=== PATIENT | female | born 1990 | race Caucasian/White ===

== ENCOUNTER 2016-04-28 11:55 | Outpatient (CLI) | payer MEDICAID | END 2016-04-28 12:39 | disposition home or self-care (01) | LOC: LC 11:55 | PROVIDERS: ATTEND Student in an Organized Health Care Education/Training Program | PROC: 4A1HXCZ Monitoring of Products of Conception, Cardiac Rate, External Approach (ICD-10-PCS; principal; 2016-04-28) | DX: Z34.93 Encounter for supervision of normal pregnancy, unspecified, third trimester (principal); Z36 Encounter for antenatal screening of mother; Z3A.34 34 weeks gestation of pregnancy | CPT/HCPCS: 59025 ==

== ENCOUNTER 2016-05-19 22:40 | Outpatient (CLI) | payer MEDICAID ==
--- NOTE | 2016-05-19 22:48 | Non Stress Test Report ---
Non Stress Test Datetime Report Generated by CPN: 05/19/2016 22:48 DEMOGRAPHIC EGA NST: 34.0 INDICATION Indication for Study: Ordered by Provider MONITORING Monitor Explained: Monitor Explained; Test Explained; Patient Verbalized Understanding Time on Monitor: 04/28/2016 12:08 Time off Monitor: 04/28/2016 12:28 NST Duration: 20 NST INTERVENTIONS NST Interventions: None; PO Hydration Physician Notified NST: KEvi Hernandez, CNM BABY A: [id number] BABY A Movement : Present Contraction Frequency : none FHR Baseline : 135 Accelerations : 15X15 Decelerations : None Variability : Moderate 6-25bpm NST Review: Meets Criteria for Reactive NST NST Review and Verified By : Anu Rao RN NST Results: Reactive NST REPORT Report Trigger: Send Report
[2016-05-19 23:12] LABS: APPEARANCE,URINE SLIGHTLY-CLOUDY; BILIRUBIN,URINE NEGATIVE (NEGATIVE); GLUCOSE, URINE 50 mg/dL (NEGATIVE); KETONES,URINE NEGATIVE (NEGATIVE); LEUKOCYTE ESTERASE,URINE NEGATIVE (NEGATIVE); NITRITE,URINE NEGATIVE (NEGATIVE); PROTEIN,URINE NEGATIVE (NEGATIVE); URINE SPECIFIC GRAVITY 1.012; UROBILINOGEN,URINE NEGATIVE mg/dL (<2.0)
[2016-05-19 23:30] LABS: URINE BARBITURATES SCREEN NEGATIVE; URINE METHADONE SCREEN NEGATIVE; URINE OPIATES LOW NEGATIVE; URINE PHENCYCLIDINE SCREEN NEGATIVE
--- NOTE | 2016-05-20 00:16 | Non Stress Test Report ---
Non Stress Test Datetime Report Generated by CPN: 05/20/2016 00:16 DEMOGRAPHIC Test Number: 3 EGA NST: 37.0 INDICATION Indication for Study: Ordered by Provider MONITORING Monitor Explained: Monitor Explained; Test Explained; Patient Verbalized Understanding Time on Monitor: 05/19/2016 23:01 Time off Monitor: 05/19/2016 23:57 NST Duration: 56 NST INTERVENTIONS Physician Notified NST: Dr Chemo BABY A Movement : Present Contraction Frequency : irregular FHR Baseline : 150 Accelerations : 15X15 Decelerations : None Variability : Moderate 6-25bpm NST Review: Meets Criteria for Reactive NST NST Review and Verified By : Dilip Gordon RN NST Results: Reactive NST REPORT Report Trigger: Send Report
--- NOTE | 2016-05-20 04:46 | L&D Current Admission ---
Current Admit Datetime Report Generated by CPN: 05/20/2016 04:45 ADMISSION INFORMATION Chief Complaint: Contractions (05/19/2016 23:11:Sheila Pittman, RN)
--- NOTE | 2016-05-20 04:46 | Antepartum Discharge Summary ---
Antepartum DC Datetime Report Generated by CPN: 05/20/2016 04:45 DIET/ACTIVITY/RESTRICTIONS Diet: Regular (05/20/2016 00:15:Sheila Pittman, RN) Activity: Normal Activity (05/20/2016 00:15:Sheila Pittman, RN) TEACHING/INSTRUCTIONS/REFERRALS Instructions Given To: Patient and spouse (05/20/2016 00:15:Sheila Pittman, RN) Instructions Understood: Patient Verbalized Understanding; Support Person Verbalized Understanding (05/20/2016 00:15:Sheila Pittman RN) Referrals: None (05/20/2016 00:15:Sheila Pittman RN) Educational Materials- Other: Kick Counts and Term Labor (05/20/2016 00:15:Sheila Pittman RN) DISCHARGE INFORMATION Discharged AMA: No (05/20/2016 00:15:Sheila Pittman RN) Discharge Date/Time: 05/20/2016 00:05 (05/20/2016 00:15:Sheila Pittman RN) Discharged To: Home (05/20/2016 00:15:Sheila Pittman RN) Discharge Provider Name: Dr Mclain (05/20/2016 00:15:Sheila Pittman RN) Accompanied By: Spouse (05/20/2016 00:15:Sheila Pittman RN) Discharge Method: Ambulatory (05/20/2016 00:15:Sheila Pittman RN) Condition: Stable (05/20/2016 00:15:Sheila Pittman RN) FOLLOW UP INFORMATION Follow Up With: [facility] (05/20/2016 00:15:Sheila Pittman RN) Follow Up On: As Scheduled (05/20/2016 00:15:Sheila Pittman RN) Follow Up Phone Number: [facility] - (05/20/2016 00:15:Sheila Pittman RN) Comments: Patient without questions at this time. Advised patient to return for contractions every 8 minutes, decreased movement, leaking of fluid, and bleeding like a period. (05/20/2016 00:15:Sheila Pittman RN)
--- NOTE | 2016-05-20 04:46 | L&D Flow Sheet ---
LD Flowsheet Datetime Report Generated by CPN: 05/20/2016 04:45 Datetime: 05/19/2016 23:57 Vital Signs Stage of : Antepartum (Sheila Pittman, RN) Respirations: 18 (Sheila Pittman, RN) Uterine Activity Monitor Mode: External; Palpation (Sheila Pittman, RN) Frequency (min): 3-5.5 (Sheila Pittman, RN) Quality: Mild (Sheila Pittman, RN) Duration (sec): 80-120 (Sheila Pittman, RN) Pattern: Normal: <= 5 Contractions in 10 Minutes (Sheila Pittman, RN) Resting Tone (Palpate): Relaxed (Sheila Pittman, RN) Assessment A Monitor Mode: External US (Sheila Pittman, RN) FHR Baseline Rate : 140 (Sheila Pittman, RN) Variability: Moderate 6-25 bpm (Sheila Pittman, RN) Accelerations: 15X15 (Sheila Pittman, RN) Decelerations: None (Sheila Pittman, RN) Pain Pain Scale: 0 (Sheila Pittman, RN) Pain Presence: None/Denies (Sheila Pittman, RN) Pain Type: N/A (Sheila Pittman, RN) Pain Coping: Talking Through Contractions (Sheila Pittman, RN) Communication Communication: RN at Bedside; RN Reviewed Strip (Sheila Pittman, RN) LaborFlag: Antepartum (QS system process) Datetime: 05/19/2016 23:56 NBP Sys/Rosalia/Mean (mmHg): 95 (QS system process) : 59 (QS system process) : 71 (QS system process) Pulse: 73 (QS system process) Vaginal Exam Dilatation (cm): 0.0 (Sheila Pittman, RN) Effacement (%): 50 (Sheila Pittman, RN) Station: -3 (Sheila Pittman, RN) Exam by: Mlee Pittman RN (Sheila Pittman, RN) Vaginal Bleeding: None (Sheila Pittman, RN) Cervix, Consistency: Moderate (Sheila Pittman, RN) Cervix, Position: Posterior (Sheila Pittman, RN) LaborFlag: Antepartum (QS system process) Datetime: 05/19/2016 23:53 Communication Communication: Provider Orders Received (Sheila Pittman RN) Communication Comments: Report given to Dr Mclain re: patient pain, contraction pattern, EGA, and FHR status. Orders received to Check Cervix and D/C home if closed. (Sheila Pittman, RN) Datetime: 05/19/2016 23:30 Vital Signs Stage of : Antepartum (Sheila Pittman, RN) Uterine Activity Monitor Mode: External; Palpation (Sheila Pittman, RN) Frequency (min): x1 (Sheila Pittman, RN) Duration (sec): 110 (Sheila Pittman, RN) Resting Tone (Palpate): Relaxed (Sheila Pittman, RN) Assessment A Monitor Mode: External US (Sheila Pittman, RN) FHR Baseline Rate : 150 (Sheila Pittman, RN) Variability: Moderate 6-25 bpm (Sheila Pittman, RN) Accelerations: 15X15 (Sheila Pittman, RN) Decelerations: None (Sheila Pittman, RN) Communication Communication: RN at Bedside; RN Reviewed Strip (Sheila Pittman, RN) Datetime: 05/19/2016 23:12 Patient Care Patient Position/Activity: Right Tilt; High Fowlers (Sheila Pittman, RN) Datetime: 05/19/2016 23:11 Frequency (min): every 10-15 minutes (Sheila Pittman, RN) Pain Pain Scale: 0 (Sheila Pittman, RN) Pain Presence: None/Denies (Sheila Pittman, RN) Pain Type: N/A (Sheila Pittman, RN) Vaginal Bleeding: None (Sheila Pittman, RN) Maternal Assessment Level of Consciousness: Fully Conscious (Sheila Pittman, RN) DTR's/Clonus: DTRs 1+; No Clonus (Sheila Pittman, RN) Headache: Denies (Sheila Pittman, RN) Breath Sounds, Left: Clear and Equal (Sheila Pittman, RN) Breath Sounds, Right: Clear and Equal (Sheila Pittman, RN) Nausea/Vomiting: Denies (Sheila Pittman, RN) RUQ Epigastric Pain: Denies (Sheila Pittman, RN) Datetime: 05/19/2016 23:03 NBP Sys/Rosalia/Mean (mmHg): 110 (QS system process) : 71 (QS system process) : 85 (QS system process) Pulse: 71 (QS system process)
--- NOTE | 2016-05-20 04:46 | L&D Admission Assessment ---
LD ADM ASMT Datetime Report Generated by CPN: 05/20/2016 04:45 PATIENT ASSESSMENT Assessment Type: Triage (05/19/2016 23:11:Sheila Pittman, RN) WEIGHT Weight (lb): 183 (05/19/2016 22:57:QS system process) Weight (kg): 83.2 (05/19/2016 22:57:QS system process) Total Wt Gain (lb): 38 (05/19/2016 22:57:QS system process) Wt Gain (kg): 17.1 (05/19/2016 22:57:QS system process) BMI: 20.1 (05/19/2016 22:57:QS system process) PAIN Pain Scale: 0 (05/19/2016 23:57:Sheila Pittman, RN) Pain Scale: 0 (05/19/2016 23:11:Sheila Pittman, RN) Pain Presence: None/Denies (05/19/2016 23:57:Sheila Pittman, RN) Pain Presence: None/Denies (05/19/2016 23:11:Sheila Pittman, RN) Pain Type: N/A (05/19/2016 23:57:Sheila Pittman, RN) Pain Type: N/A (05/19/2016 23:11:Sheila Pittman, RN) CONTRACTIONS Frequency (min): 3-5.5 (05/19/2016 23:57:Sheila Pittman, RN) Frequency (min): x1 (05/19/2016 23:30:Sheila Pittman, RN) Frequency (min): every 10-15 minutes (05/19/2016 23:11:Sheila Pittman, RN) Duration (sec): 80-120 (05/19/2016 23:57:Sheila Pittman, RN) Duration (sec): 110 (05/19/2016 23:30:Sheila Pittman, RN) Quality: Mild (05/19/2016 23:57:Sheila Pittman, RN) Pattern: Normal: <= 5 Contractions in 10 Minutes (05/19/2016 23:57:Sheila Pittman, RN) Resting Tone [place]: Relaxed (05/19/2016 23:57:Sheila Pittman, RN) Resting Tone [place]: Relaxed (05/19/2016 23:30:Sheila Pittman, RN) VAGINAL EXAM Dilatation (cm): 0.0 (05/19/2016 23:56:Sheila Pittman, RN) Effacement (%): 50 (05/19/2016 23:56:Sheila Pittman, RN) Station: -3 (05/19/2016 23:56:Sheila Pittman, RN) NEURO Level of Consciousness: Fully Conscious (05/19/2016 23:11:Sheila Pittman RN) DTR's/Clonus: DTRs 1+; No Clonus (05/19/2016 23:11:Sheila Pittman RN) Headache: Denies (05/19/2016 23:11:Sheila Pittman RN) Dizziness: No (05/19/2016 23:11:Sheila Pittman RN) Blurred Vision: No (05/19/2016 23:11:Sheila Pittman RN) Extremity Numbness/Tingling : None (05/19/2016 23:11:Sheila Pittman RN) Extremity Movement: Full Range of Motion (05/19/2016 23:11:Sheila Pittman RN) CARDIOVASCULAR Heart Rhythm: Regular (05/19/2016 23:11:Sheila Pittman RN) Nailbeds: [place] (05/19/2016 23:11:Sheila Pittman RN) Capillary Refill: Less than 3 Seconds (05/19/2016 23:11:Sheila Pittman RN) Lower Extremities Edema: None (05/19/2016 23:11:Sheila Pittman RN) Lower Extremities Edema Degree: None (05/19/2016 23:11:Sheila Pittman RN) Upper Extremities Edema: None (05/19/2016 23:11:Sheila Pittman RN) Upper Extremities Edema Degree: None (05/19/2016 23:11:Sheila Pittman RN) Facial Edema: None (05/19/2016 23:11:Sheila Pittman RN) Alber's Sign Left Leg: Negative (05/19/2016 23:11:Sheila Pittman RN) Alber's Sign Right Leg: Negative (05/19/2016 23:11:Sheila Pittman RN) DVT RISK ASSESSMENT DVT Risk Age: Age less than 41 years (05/19/2016 23:11:Sheila Pittman RN) DVT Risk BMI: BMI<31 (05/19/2016 23:11:Sheila Pittman RN) DVT Risk Surgery: History of Prior Major Surgery (05/19/2016 23:11:Sheila Pittman RN) DVT Risk Other: None Applicable (05/19/2016 23:11:Sheila Pittman RN) DVT Risk Total: 1 (05/19/2016 23:11:QS system process) DVT Risk Text: Low Risk (<10%) No specific measures, early ambulation (05/19/2016 23:11:QS system process) RESPIRATORY Respiratory Effort: Unlabored; Regular Rhythm; Equal Expansion (05/19/2016 23:11:Sheila Pittman, RN) Breath Sounds, Left: Clear and Equal (05/19/2016 23:11:Sheila Pittman, RN) Breath Sounds, Right: Clear and Equal (05/19/2016 23:11:Sheila Pittman, RN) Cough Productivity: None (05/19/2016 23:11:Sheila Pittman, RN) GASTROINTESTINAL Nausea/Vomiting: Denies (05/19/2016 23:11:Sheila Pittman, RN) Bowel Sounds: Normoactive; All Quadrants (05/19/2016 23:11:Sheila Pittman, RN) RUQ Epigastric Pain: Denies (05/19/2016 23:11:Sheila Pittman, RN) Bowel Patterns: Soft, Formed Stool (05/19/2016 23:11:Sheila Pittman, RN) Hemorrhoids: Present (05/19/2016 23:11:Sheila Pittman, RN) Diet Type: Regular diet (05/19/2016 23:11:Sheila Pittman, RN) Last Meal: 05/19/2016 19:30 (05/19/2016 23:11:Sheila Pittman, RN) GENITOURINARY Bladder: Nondistended (05/19/2016 23:11:Sheila Pittman, RN) Frequency of Urination: No (05/19/2016 23:11:Sheila Pittman, RN) Urination Burning: No (05/19/2016 23:11:Sheila Pittman, RN) CVA Tenderness: No (05/19/2016 23:11:Sheila Pittman, RN) INTEGUMENTARY Skin Color: Normal for Race (05/19/2016 23:11:Sheila Pittman, RN) Skin Temperature: Warm (05/19/2016 23:11:Sheila Pittman, RN) Skin Moisture: Dry (05/19/2016 23:11:Sheila Pittman, RN) Surgical Scars: C/S, Spinal fusion surgery (05/19/2016 23:11:Sheila Pittman, RN) Body Piercings/Tattoos: piercings- none Tattoos- x3 (05/19/2016 23:11:Sheila Pittman, RN) AKIL SKIN ASSESSMENT Akil Scale Sensory Perception: No Impairment- Responds to verbal commands. Has no sensory deficit which would limit ability to feel or voice pain or discomfort (05/19/2016 23:11:Sheila Pittman RN) Akil Scale Moisture: Rarely Moist- Skin is usually dry. Linen only requires changing at routine intervals (05/19/2016 23:11:Sheila Pittman RN) Akil Scale Activity: Walks Frequently- Walks outside the room at least twice a day and inside room at least every 2 hours during the day. (05/19/2016 23:11:Sheila Pittman RN) Akil Scale Mobility: No Limitations- Makes major and frequent changes in position without assistance (05/19/2016 23:11:Sheila Pittman RN) Akil Scale Nutrition: Excellent- Eats most of every meal. Never refuses a meal. Usually eats a total of 4 or more servings of meat and dairy products. Occasionally eats between meals. Does not require supplementation (05/19/2016 23:11:Sheila Pittman RN) Akil Scale Friction and Shear: No Apparent Problem- Moves in bed and in chair independently and has sufficient muscle strength to lift up completely during move. Maintains good position in bed or chair at all times (05/19/2016 23:11:Sheila Pittman RN) Akil Scale Total: 23 (05/19/2016 23:11:QS system process) Akil Scale Risk: No Risk of Pressure Ulcer Noted at this Time (05/19/2016 23:11:QS system process) SUPPORT Family Support: Significant Other supportive, at bedside frequently (05/19/2016 23:11:Sheila Pittman RN) Emotional State: Calm/Relaxed (05/19/2016 23:11:Sheila Pittman RN) SAFETY Call [place] Within Reach: Yes (05/19/2016 23:11:Sheila Pittman RN) Side Rails Up: Yes (05/19/2016 23:11:Sheila Pittman RN) Bed Wheels Locked: Yes (05/19/2016 23:11:Sheila Pittman RN) Arm Bands Present: Yes (05/19/2016 23:11:Sheila Pittman RN) FALL SCREEN Fall Risk History of Falling: (0) No (05/19/2016 23:11:Sheila Pittman RN) Fall Risk Secondary Diagnosis: (0) No (05/19/2016 23:11:Sheila Pittman RN) Fall Risk Ambulatory Aid: (0) None/Bedrest/Wheelchair/Nurse Assist (05/19/2016 23:11:Sheila Pittman RN) Fall Risk IV Therapy: (0) No (05/19/2016 23:11:Sheila Pittman RN) Fall Risk Gait: (0) Normal/Bedrest/Immobile (05/19/2016 23:11:Sheila Pittman RN) Fall Risk Mental Status: (0) Oriented to Own Ability (05/19/2016 23:11:Sheila Pittman RN) Fall Risk Score: 0 (05/19/2016 23:11:QS system process) Fall Risk Score Definition: No Risk: No action required (05/19/2016 23:11:QS system process) RECENT TRAVEL/INFECTIOUS DISEASE Recent Exp Communicable Disease: No (05/19/2016 23:11:Sheila Pittman RN) Cough or Fever: No (05/19/2016 23:11:Sheila Pittman RN) Foreign Travel Past 10 Days: No (05/19/2016 23:11:Sheila Pittman RN) Open Wounds or Sores: No (05/19/2016 23:11:Sheila Pittman RN) Prior Antibiotic Resistance Tx: No (05/19/2016 23:11:Sheila Pittman RN) Cultures Obtained: Not Applicable (05/19/2016 23:11:Sheila Pittman RN) Isolation Initiated: No (05/19/2016 23:11:Sheila Pittman RN) Pt/Family Education: Handwashing Hygiene (05/19/2016 23:11:Sheila Pittman RN) BABY A FHR Baseline Rate (bpm) Baby A: 140 (05/19/2016 23:57:Sheila Pittman RN) FHR Baseline Rate (bpm) Baby A: 150 (05/19/2016 23:30:Sheila Pittman RN) Variability Baby A: Moderate 6-25 bpm (05/19/2016 23:57:Sheila Pittman RN) Variability Baby A: Moderate 6-25 bpm (05/19/2016 23:30:Sheila Pittman RN) Accelerations Baby A: 15X15 (05/19/2016 23:57:Sheila Pittamn RN) Accelerations Baby A: 15X15 (05/19/2016 23:30:Sheila Pittman RN) Decelerations Baby A: None (05/19/2016 23:57:Sheila Pittman RN) Decelerations Baby A: None (05/19/2016 23:30:Sheila Pittman RN)
--- NOTE | 2016-05-20 04:46 | L&D General Admission ---
General Admit Datetime Report Generated by CPN: 05/20/2016 04:45 INFORMATION Patient Age: 25 (03/16/2016 10:51:QS system process) EDC: 06/09/2016 00:00 (04/28/2016 12:29:Vero Mclain RN) LMP: 09/03/2015 00:00 (04/28/2016 12:29:Lucien Rao RN) : 2 (04/28/2016 12:29:Lucien Rao RN) Para: 1 (04/28/2016 12:29:Lucien Rao RN) Term: 1 (04/28/2016 12:29:Lorene Atkinson RN) : 0 (04/28/2016 12:29:Lorene Atkinson RN) Spontaneous Abortions: 0 (04/28/2016 12:29:Lorene Atkinson RN) Induced Abortions: 0 (04/28/2016 12:29:Lorene Atkinson RN) Livin (04/28/2016 12:29:Lorene Atkinson RN) Cesareans: 1 (04/28/2016 12:29:Lorene Atkinson RN) VBACs: 0 (04/28/2016 12:29:Lorene Atkinson RN) Ectopic: 0 (04/28/2016 12:29:Lorene Atkinson RN) Multiple Births: 0 (04/28/2016 12:29:Sheila Pittman RN) Baby, Number in Womb: 1 (04/28/2016 12:29:Lorene Atkinson RN) CARE Primary Cat [place]er: [facility] (04/28/2016 12:29:Lucien Rao RN) Cat Hooker Other: [facility] (04/28/2016 12:29:Lucien Rao RN) Month of 1st Visit: October 2015 (04/28/2016 12:29:Lucien Rao RN) Adequate Care: Yes (04/28/2016 12:29:Lucien Rao RN) Prepregnancy Weight (lb): 145 (04/28/2016 12:29:Lucien Rao RN) Prepregnancy Weight (kg): 65.9 (04/28/2016 12:29:QS system process) Height (in): 61 (05/19/2016 22:57:QS system process) Height (in): 80 (04/28/2016 12:37:QS system process) ALLERGIES Medication Allergy: No (04/28/2016 12:29:Lucien Rao RN) Medication Allergies: No Known Allergies (05/19/2016) (05/19/2016 22:55:QS system process) Medication Allergies: No Known Allergies (04/28/2016) (04/28/2016 12:37:QS system process) Latex Allergy: No Latex Allergies (04/28/2016 12:29:Lucien Rao RN) Food Allergies: none (04/28/2016 12:29:Sheila Pittman RN) Environmental Allergies: none (04/28/2016 12:29:Sheila Pittman RN) COMMUNICATION Primary Language: Spanish (04/28/2016 12:29:Lucien Rao RN) Medical Tx Preferred Language: Spanish (04/28/2016 12:29:Sheila Pittman RN) Communication Barrier(s): None (04/28/2016 12:29:Lucien Rao RN) DEMOGRAPHICS Address: [address] [place] [id number] (03/16/2016 10:51:QS system process) Zipcode: [address] (03/16/2016 10:51:QS system process) Home (03/16/2016 10:51:QS system process) SSN: [id number] (03/16/2016 10:51:QS system process) Next of Kin Name: ROBIN NASCIMENTO (03/16/2016 10:51:QS system process) Next of Kin (03/16/2016 10:51:QS system process) Next of Kin Relationship: SPO (03/16/2016 10:51:QS system process) Date of : 1990 (03/16/2016 10:51:QS system process) Marital Status: (03/16/2016 10:51:QS system process) Sex: Female (03/16/2016 10:51:QS system process) Race: (03/16/2016 10:51:QS system process) Ethnicity: Non- or (03/16/2016 10:51:QS system process) Amish: [employer]aritan (03/16/2016 10:51:QS system process) DRUG AND ALCOHOL USE Alcohol: No (04/28/2016 12:29:Sheila Pittman RN) Cigarettes: Current Some Day Smoker. [id number] (04/28/2016 12:29:Sheila Pittman, RN) Marijuana: No (04/28/2016 12:29:Sheila Pittman, RN) Cocaine: No (04/28/2016 12:29:Sheila Pittman, RN) Other Illicit Drugs: No (04/28/2016 12:29:Sheila Pittman, RN) VACCINE HISTORY Influenza Vaccine: No (04/28/2016 12:29:Sheila Pittman RN) Pneumococcal Vaccine: No (04/28/2016 12:29:Sheila Pittman RN) Tetanus Vaccine: Yes (04/28/2016 12:29:Sheila Pittman RN) Tdap Vaccine: Yes (04/28/2016 12:29:Sheila Pittman RN) Hepatitis B Vaccine: No (04/28/2016 12:29:Sheila Pittman, RN) Tension Worker: [facility] (04/28/2016 12:29:Sheila Pittman RN) Feeding Preference: Breast (04/28/2016 12:29:Sheila Pittman RN) Benefit of Breast Feed Discussed: Yes (04/28/2016 12:29:Sheila Pittman RN) Circumcision: N/A (04/28/2016 12:29:Sheila Pittman RN) Classes Attended: No (04/28/2016 12:29:Sheila Pittman RN) Tubal Ligation: Yes (04/28/2016 12:29:Sheila Pittman RN) Tubal Authorization Signed: Yes (04/28/2016 12:29:Sheila Pittman RN) Consent: N/A (04/28/2016 12:29:Sheila Pittman RN) Consent Signed: No (04/28/2016 12:29:Sheila Pittman RN) Pain Management Plans: Spinal (04/28/2016 12:29:Sheila Pittman RN) Plans for Labor and Delivery: None (04/28/2016 12:29:Sheila Pittman RN) Support Person: Robin (04/28/2016 12:29:Sheila Pittman RN) Support Person Relationship: (04/28/2016 12:29:Sheila Pittman RN) Cultural/Spritual Practice: No (04/28/2016 12:29:Sheila Pittman RN) Spir/Cult Dietary Needs: No (04/28/2016 12:29:Sheila Pittman RN) LIVING SITUATION/DISCHARGE PLAN Living Arrangements: House (04/28/2016 12:29:Sheila Pittman RN) Adequate Access to:: Electric; Heat; Refrigeration; Plumbing/Running water; Phone; Transportation (04/28/2016 12:29:Sheila Pittman RN) WIC Program: Yes (04/28/2016 12:29:Sheila Pittman RN) Discharge Solar Panel Installer Person: Robin (04/28/2016 12:29:Sheila Pittman RN) Person to Help after Discharge: Robin (04/28/2016 12:29:Sheila Pittman RN) Currently Using Commun Resources: Yes (04/28/2016 12:29:Sheila Pittman RN) Specify Current Resource Used: Medicaid (04/28/2016 12:29:Sheila Pittman RN) Outside Agency/Software Support Representative: No (04/28/2016 12:29:Sheila Pittman RN) Car Seat for Discharge: Yes (04/28/2016 12:29:Sheila Pittman RN) Adoption Requested: No (04/28/2016 12:29:Sheila Pittman RN) Pt Contact w/infant Post : N/A (04/28/2016 12:29:Sheila Pittman RN) LABS Blood Type: O Positive (04/28/2016 12:29:Sheila Pittman RN) Antibody Screen: negative (04/28/2016 12:29:Sheila Pittman RN) Group Beta Strep: negative (04/28/2016 12:29:Sheila Pittman RN) Gonorrhea: Negative (04/28/2016 12:29:Sheila Pittman RN) Chlamydia: Negative (04/28/2016 12:29:Sheila Pittman RN) RPR/VDRL: Nonreactive (04/28/2016 12:29:Sheila Pittman RN) HIV Exposure Test: Negative (04/28/2016 12:29:Sheila Pittman RN) Rubella: Immune (04/28/2016 12:29:Sheila Pittman RN) OB/PREVIOUS HISTORY LMP: 09/03/2015 00:00 (04/28/2016 12:29:Lucien Rao RN) Previous Procedures: Ultrasound; NST (04/28/2016 12:29:Sheila Pittman RN) Current Procedures: Ultrasound; NST (04/28/2016 12:29:Sheila Pittman RN) History of Previous : Yes (04/28/2016 12:29:Sheila Pittman RN) History of Gestational Diabetes: No (04/28/2016 12:29:Sheila Pittman RN) History of PIH: No (04/28/2016 12:29:Sheila Pittman RN) History of Incompetent Cervix: No (04/28/2016 12:29:Sheila Pittman RN) History of Placenta Previa/Abrup: No (04/28/2016 12:29:Sheila Pittman RN) History of Macrosomia: No (04/28/2016 12:29:Sheila Pittman RN) History of IUGR: No (04/28/2016 12:29:Sheila Pittman RN) History of Hemorrhage: No (04/28/2016 12:29:Sheila Pittman RN) History of Loss/Stillborn: No (04/28/2016 12:29:Sheila Pittman RN) History of : No (04/28/2016 12:29:Sheila Pittman RN) History of D (Rh) Sensitization: No (04/28/2016 12:29:Sheila Pittman RN) History Recurrent Loss/Stillborn: No (04/28/2016 12:29:Sheila Pittman RN) History Depression/PP Depression: No (04/28/2016 12:29:Sheila Pittman RN) History of Uterine Anomaly/MAHOGANY: No (04/28/2016 12:29:Sheila Pittman RN) History of Infertility: No (04/28/2016 12:29:Sheila Pittman RN) History of ART Treatment: No (04/28/2016 12:29:Sheila Pittman RN) History of MAHOGANY: No (04/28/2016 12:29:Sheila Pittman RN) Comments Obstetrical History: G1 06/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, 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; Aicardi Syndrome Shunt, Epilepsy G2 Current (04/28/2016 12:29:Lorene Atkinson RN) MEDICAL HISTORY Med Hx Diabetes: Yes (04/28/2016 12:29:Lucien Rao RN) Diabetes Type: Gestational Diabetes (04/28/2016 12:29:Lucien Rao RN) Med Hx Hypertension: No (04/28/2016 12:29:Sheila Pittman RN) Med Hx Heart Disease: No (04/28/2016 12:29:Sheila Pittman RN) Med Hx Autoimmune Disorder: No (04/28/2016 12:29:Sheila Pittman RN) Med Hx Kidney Disease/UTI: No (04/28/2016 12:29:Sheila Pittman RN) Med Hx Neurologic/Epilepsy: No (04/28/2016 12:29:Sheila Pittman RN) Med Hx Psychiatric Disorders: No (04/28/2016 12:29:Sheila Pittman RN) Med Hx Hepatitis/Liver Disease: No (04/28/2016 12:29:Sheila Pittman RN) Med Hx Varicosities/Phlebitis: No (04/28/2016 12:29:Sheila Pittman RN) Med Hx Thyroid Dysfunction: No (04/28/2016 12:29:Sheila Pittman RN) Med Hx Trauma/Violence: No (04/28/2016 12:29:Sheila Pittman RN) Med Hx Blood Transfusion: No (04/28/2016 12:29:Sheila Pittman RN) Med Hx Pulmonary (Asthma,TB): No (04/28/2016 12:29:Sheila Pittman RN) Med Hx Breast: No (04/28/2016 12:29:Sheila Pittman RN) Med Hx STEEL ESTIMATOR Surgery: No (04/28/2016 12:29:Sheila Pittman RN) Med Hx Hospitalization/Surgery: Yes (04/28/2016 12:29:Lucien Rao RN) Med Hx Anesthetic Complications: No (04/28/2016 12:29:Sheila Pittman RN) Med Hx Abnormal Pap Smear: No (04/28/2016 12:29:Sheila Pittman RN) Other Medical Diseases: No (04/28/2016 12:29:Sheila Pittman RN) Med Hx Significant Family Hx: No (04/28/2016 12:29:Sheila Pittman RN) Details of Med/Surg Hx: Back Surgery; Pleurodynia; Congenital Scoliosis d/t congenital bony malformation, Previous C/S, GDM (04/28/2016 12:29:Lucien Rao RN) INFECTIOUS HISTORY Inf Hx Gonorrhea: No (04/28/2016 12:29:Sheila Pittman RN) Inf Hx Chlamydia: No (04/28/2016 12:29:Sheila Pittman RN) Inf Hx Syphilis: No (04/28/2016 12:29:Sheila Pittman RN) Inf Hx HIV/AIDS: No (04/28/2016 12:29:Sheila Pittman RN) Inf Hx Human Papilloma Virus: No (04/28/2016 12:29:Sheila Pittman RN) Inf Hx Pt/Partner Genital Herpes: No (04/28/2016 12:29:Sheila Pittman RN) Inf Hx Tuberculosis/Exposure: No (04/28/2016 12:29:Sheila Pittman RN) Inf Hx Hepatitis B,C: No (04/28/2016 12:29:Sheila Pittmna RN) Inf Hx Rash or Viral Illness: No (04/28/2016 12:29:Sheila Pittman RN) GENETIC HISTORY Gen Hx Age >=35 at GIRISH: No (04/28/2016 12:29:Sheila Pittman RN) Gen Hx Thalassemia: No (04/28/2016 12:29:Sheila Pittman RN) Gen Hx Congenital Heart Defect: No (04/28/2016 12:29:Sheila Pittman RN) Gen Hx Neural Tube Defect: No (04/28/2016 12:29:Sheila Pittman RN) Gen Hx Down's Syndrome: No (04/28/2016 12:29:Sheila Pittman RN) Gen Hx Prasanna-Sachs: No (04/28/2016 12:29:Sheila Pittman RN) Gen Hx Nazario: No (04/28/2016 12:29:Sheila Pittman RN) Gen Hx Familial Dysautonomia: No (04/28/2016 12:29:Sheila Pittman RN) Gen Hx Sickle Cell Disease/Trait: No (04/28/2016 12:29:Sheila Pittman RN) Gen Hx Hemophilia/Blood Disorder: No (04/28/2016 12:29:Sheila Pittman RN) Gen Hx Muscular Dystrophy: No (04/28/2016 12:29:Sheila Pittman RN) Gen Hx Cystic Fibrosis: No (04/28/2016 12:29:Sheila Pittman RN) Gen Hx Huntingtons Chorea: No (04/28/2016 12:29:Sheila Pittman RN) Gen Hx Mental Retardation/Autism: No (04/28/2016 12:29:Sheila Pittman RN) Gen Hx Tested for Fragile X: No (04/28/2016 12:29:Sheila Pittman RN) Gen Hx Other Inher/Chromosomal: No (04/28/2016 12:29:Sheila Pittman RN) Gen Hx Maternal Metabolic DO: No (04/28/2016 12:29:Sheila Pittman RN) Gen Hx Pt Father or FOB Defect: No (04/28/2016 12:29:Sheila Pittman RN) Gen Hx Other Genetic History: No (04/28/2016 12:29:Sheila Pittman RN) Gen Hx Drugs/Meds since LMP: Yes (04/28/2016 12:29:Sheila Pittman RN) Gen Hx Medications: tylenol (04/28/2016 12:29:Sheila Pittman RN)
--- NOTE | 2016-05-20 04:46 | L&D Discharge Summary ---
OB Discharge Summary Datetime Report Generated by CPN: 05/20/2016 04:45 DISCHARGE DIAGNOSIS Diagnosis/Symptoms: False Labor Diagnoses/Symptoms Other: Reactive NST Gestation: 37.0 Number of Babies in Womb: 1 Parity: 1 DIET/ACTIVITY/RESTRICTIONS Diet: Regular Activity: Normal Activity TEACHING/INSTRUCTIONS/REFERRALS Instructions Given To: Patient and spouse Instructions Understood: Patient Verbalized Understanding; Support Person Verbalized Understanding Referrals: None Educational Materials- Other: Kick Counts and Term Labor DISCHARGE INFORMATION Discharged AMA: No Discharge Date/Time: 05/20/2016 00:05 Discharged To: Home Discharge Provider Name: Dr Mclain Accompanied By: Spouse Discharge Method: Ambulatory Condition: Stable FOLLOW UP INFORMATION Follow Up With: [facility] Follow Up On: As Scheduled Follow Up Phone Number: Watchwith - Comments: Patient without questions at this time. Advised patient to return for contractions every 8 minutes, decreased movement, leaking of fluid, and bleeding like a period. GENERAL INSTR-CALL PROVIDER IF: Contractions: Contractions or cramps become more frequent than 8 in one hour or 4 in 20 minutes; Regular painful contractions every 5 minutes or less for one hour. Time your contractions from the beginning of one to the beginning of the next Pressure: Pressure in your vagina or lower abdomen that may feel like the baby is pushing down Period Like Cramps: Period-like cramps or low dull backache that may come and go Cramps/Diarrhea: Abdominal cramps that may be accompanied by diarrhea Gush of Fluid/Blood: Gush of fluid or blood from your vagina (it is normal to have spotting after vaginal exam or intercourse) Vaginal Discharge: Change in the type or amount of vaginal discharge Decreased Movement: Your baby is not moving as much as usual- 4 movements in 1 hour after drinking and resting on side Temperature: Temperature greater than 100.0(F) orally
== END 2016-05-20 00:05 | disposition home or self-care (01) ==
LOC: LC 22:40
PROVIDERS: ATTEND Obstetrics & Gynecology
PROC: 4A1HXCZ Monitoring of Products of Conception, Cardiac Rate, External Approach (ICD-10-PCS; principal; 2016-05-19)
DX: O47.1 False labor at or after 37 completed weeks of gestation (principal); Z3A.37 37 weeks gestation of pregnancy
CPT/HCPCS: 59025; 80307; 81005

== ENCOUNTER 2016-06-02 06:08 | Inpatient (IN) | payer MEDICAID ==
[2016-06-01 11:23] LABS: APPEARANCE,URINE SLIGHTLY-CLOUDY; BILIRUBIN,URINE NEGATIVE (NEGATIVE); GLUCOSE, URINE NEGATIVE (NEGATIVE); KETONES,URINE NEGATIVE (NEGATIVE); LEUKOCYTE ESTERASE,URINE NEGATIVE (NEGATIVE); NITRITE,URINE NEGATIVE (NEGATIVE); PROTEIN,URINE NEGATIVE (NEGATIVE); URINE SPECIFIC GRAVITY 1.013; UROBILINOGEN,URINE NEGATIVE mg/dL (<2.0)
[2016-06-01 12:30] LABS: ABSOLUTE EOSINOPHILS # (AUTO) 0.1 10^3/uL (0.0-0.6); ABSOLUTE LYMPHOCYTES (AUTO) 1.3 10^3/uL (0.5-4.7); ABSOLUTE MONOCYTES (AUTO) 0.6 10^3/uL (0.1-1.4); ABSOLUTE NEUT (AUTO) 7.1 10^3/uL (1.7-8.2); BASOPHILS % (AUTO) 0.1 % (0-2); EOSINOPHILS % (AUTO) 1.2 % (0-6); HEMATOCRIT 35.7 % (36.0-47.0); HEMOGLOBIN 12.1 g/dL (12.0-15.5); HGB HCT DIFFERENCE 0.6; LYMPHOCYTES % (AUTO) 14.5 % (13-45); MEAN CORPUSCULAR HEMOGLOBIN 29.8 pg (27.0-33.4); MEAN CORPUSCULAR HGB CONC 33.8 g/dL (32.0-36.0); MEAN CORPUSCULAR VOLUME 88 fl (80-97); MONOCYTES % (AUTO) 6.6 % (3-13); RED BLOOD COUNT 4.05 10^6/uL (3.72-5.28); RED CELL DISTRIBUTION WIDTH 14.2 % (11.5-14.0); SEGMENTED NEUTROPHILS % (AUTO) 77.6 % (42-78); WHITE BLOOD COUNT 9.2 10^3/uL (4.0-10.5)
[2016-06-01 14:21] LABS: URINE BARBITURATES SCREEN NEGATIVE; URINE METHADONE SCREEN NEGATIVE; URINE OPIATES LOW NEGATIVE; URINE PHENCYCLIDINE SCREEN NEGATIVE
[~2016-06-02 06:08] MED LIST: ACETAMINOPHEN 100 ML IV PRN; CEFAZOLIN 2 GM/D5W RTU 2 GM/50 ML RTUPB IV PRN; LIDOCAINE 0.5% INJ-PF (5 MG/ML) 50 ML SDV SUBCUT PRN; RINGERS SOLUTION,LACTATED 1,500 ML IV ONE
[2016-06-02] MEDS ORDERED: EPHEDRINE SULFATE INJ 50 MG/1 ML AMPULE ONE (07:16)
[2016-06-02] MEDS ORDERED: FENTANYL CITRATE INJ/PF 100 MCG/2 ML AMPUL ONE (07:16)
[2016-06-02] MEDS ORDERED: OXYTOCIN/NORMAL SALINE 20 UNIT/1,000 ML RTUINJ ONE (07:16)
[2016-06-02] MEDS ORDERED: OXYTOCIN 10 UNIT/ML VIAL ONE (07:16)
[2016-06-02] MEDS ORDERED: MIDAZOLAM 2 MG/2 ML INJ ONE (07:17)
[2016-06-02] MEDS: LACTATED RINGERS 1000 ML IV PRN ×2 (08:37→19:40)
[2016-06-02] MEDS ORDERED: FENTANYL CITRATE INJ/PF 100 MCG/2 ML AMPUL IV PRN ×3 (10:48)
[2016-06-02] MEDS ORDERED: MORPHINE SULFATE 10 MG/ML INJ IV PRN (10:48)
[2016-06-02] MEDS ORDERED: ONDANSETRON HCL INJ/PF 4 MG/2 ML SDV IV PRN (10:48)
[2016-06-02] MEDS ORDERED: DIPHENHYDRAMINE HCL 50 MG/ML VIAL IV PRN (10:48)
[2016-06-02] MEDS ORDERED: PROMETHAZINE HCL INJ 25 MG/1 ML VIAL IV PRN ×3 (10:48→11:17)
[2016-06-02] MEDS ORDERED: MEPERIDINE HCL/PF INJ 25 MG/1 ML DISP.SYRIN IV PRN (10:48)
[2016-06-02] MEDS ORDERED: ACETAMINOPHEN 100 ML IV ONE (10:57)
--- NOTE | 2016-06-02 11:08 | Operative Report ---
Operative Report DATE OF SURGERY: 06/02/16 PREOPERATIVE DIAGNOSIS: Intrauterine at 39 weeks with history of C- section and desire for repeat with permanent sterilization. Gestational diabetes. POSTOPERATIVE DIAGNOSIS: Intrauterine at 39 weeks status post repeat C -section with bilateral tubal ligation with Filshie clips. Gestational diabetes. OPERATION: Repeat low transverse cervical section with bilateral tubal ligation with Filshie clips SURGEON: JANE LEVINE ANESTHESIA: Spinal TISSUE REMOVED OR ALTERED: Placenta which was discarded ESTIMATED BLOOD LOSS: 600 mL INTRAOPERATIVE FINDINGS: [place] female infant in vertex presentation with clear amniotic fluid. Apgars were 9 at 1 and 9 at 5 minutes and weight was 3505 g. The bladder was adhesed approximately one third of the way up the uterus. Tubes and ovaries appeared normal. PROCEDURE: After discussing risks benefits and alternatives of the procedure and obtaining informed consent the patient was taken to the operating room where spinal anesthesia was achieved. She was positioned in the dorsal supine position with a leftward tilt. She was then prepped and draped in the usual standard fashion. The old Pfannenstiel scar was excised and the abdomen was entered in layers in the usual standard fashion. A bladder flap was created with sharp dissection. The C safe knife was used to make a low-transverse hysterotomy incision. The surgeon's hand was entered into the hysterotomy incision and the vertex elevated and delivered. Shoulders and body were delivered easily thereafter. Nasopharynx and oropharynx were bulb suctioned. Cord was clamped and cut. The infant was handed to pediatrics who were present. The placenta was manually extracted. The uterus was cleared of all clots and debris. The hysterotomy incision was closed with 0 Monocryl in a running locked fashion. A second layer closure was performed with 2-0 Vicryl. Excellent hemostasis was observed. A Filshie clip was placed across the isthmic portion of each fallopian tube. The uterus tubes and ovaries were returned to the peritoneal cavity. The cavity was irrigated with saline and hemostasis was again assured. Peritoneum was closed with 2-0 Vicryl in a pursestring fashion. Rectus muscles were loosely reapproximated with interrupted stitches of 2-0 Vicryl. The subfascial space was inspected and noted to be hemostatic. The fascia was closed with #1 Vicryl. The subcutaneous tissues were irrigated and hemostasis assured. 3-O plain gut was used to reapproximate the subcutaneous space which was quite thick. The skin was closed in a subcuticular fashion with 4-0 Monocryl. An OpSite dressing was applied. The patient was taken to recovery in stable condition. All sponge needle lap and instrument counts were correct correct x2.
[2016-06-02] MEDS ORDERED: ACETAMINOPHEN 325 MG TABLET PO PRN (11:17)
[2016-06-02] MEDS ORDERED: SIMETHICONE 80 MG TAB.CHEW PO PRN (11:17)
[2016-06-02] MEDS ORDERED: OXYTOCIN/NORMAL SALINE 1,000 ML IV PRN (11:17)
[2016-06-02] MEDS ORDERED: DIPH/PERTUSS(ACELL)/TETANUS VAC/PF 0.5 ML SYR (>=10YO) IM PRN (11:17)
[2016-06-02] MEDS ORDERED: OXYCODONE-ACETAMINOPHEN 5-325 MG TABLET PO PRN (11:17)
[2016-06-02] MEDS ORDERED: MEASLES,MUMPS&RUBELLA VACC/PF 0.5 ML VIAL SUBCUT PRN (11:17)
[2016-06-02] MEDS: FENTANYL CITRATE INJ/PF 100 MCG/2 ML AMPUL ONE ×3 (11:50→12:24)
[2016-06-02] MEDS ORDERED: ONDANSETRON HCL INJ/PF 4 MG/2 ML SDV ONE (13:44)
[2016-06-02] MEDS ORDERED: LIDOCAINE 2% INJ-PF (20 MG/ML) 10 ML AMPUL ONE (13:44)
[2016-06-02] MEDS ORDERED: DEXAMETHASONE SOD PHOSPHATE INJ 4 MG/1 ML VIAL ONE (13:44)
[2016-06-02] MEDS ORDERED: KETOROLAC TROMETHAMINE 60 MG/2 ML SDV ONE (13:44)
[2016-06-02] MEDS ORDERED: METOCLOPRAMIDE HCL INJ/PF 10 MG/2 ML SDV ONE (13:44)
[2016-06-02] MEDS: IBUPROFEN 800 MG TABLET PO SCH ×3 (14:14→23:04)
[2016-06-02] MEDS: HYDROMORPHONE HCL INJ/PF 2 MG/ML AMPULE IV PRN ×2 (14:20→18:32)
[2016-06-02] MEDS: OXYCODONE-ACETAMINOPHEN 5-325 MG TABLET PO PRN ×2 (15:59→22:19)
[2016-06-02] MEDS: DOCUSATE SODIUM 100 MG CAPSULE PO SCH (18:31)
[2016-06-03] MEDS: OXYCODONE-ACETAMINOPHEN 5-325 MG TABLET PO PRN ×5 (02:20→22:59)
[2016-06-03] MEDS: IBUPROFEN 800 MG TABLET PO SCH ×3 (05:49→17:20)
[2016-06-03 07:00] LABS: HEMATOCRIT 25.5 % (36.0-47.0); HGB HCT DIFFERENCE 0.3; MEAN CORPUSCULAR HEMOGLOBIN 30.1 pg (27.0-33.4); MEAN CORPUSCULAR HGB CONC 33.9 g/dL (32.0-36.0); MEAN CORPUSCULAR VOLUME 89 fl (80-97); RED BLOOD COUNT 2.87 10^6/uL (3.72-5.28); RED CELL DISTRIBUTION WIDTH 14.4 % (11.5-14.0); WHITE BLOOD COUNT 11.7 10^3/uL (4.0-10.5)
[2016-06-03 07:07] LABS: HEMOGLOBIN 8.6 g/dL (12.0-15.5)
[2016-06-03] MEDS: PRENATAL VITAMIN W-O CA NO5/FE FUMARATE/FA CAPSULE PO SCH (11:23)
[2016-06-03] MEDS: DOCUSATE SODIUM 100 MG CAPSULE PO SCH ×2 (11:23→17:20)
[2016-06-03] MEDS ORDERED: GLYCERIN/WITCH HAZEL LEAF 1 EACH MED..PAD TP PRN (13:38)
--- NOTE | 2016-06-03 14:11 | PDOC PROGRESS REPORT ---
Subjective-OB Subjective: Post Delivery Day:1 25 year old s/p repeat with BTL ppd 1. Ambulating and voiding without difficulty. Bowel movement this am with discomfort from hemorrhoids. Bottle feeding, baby in NICU. Denies any needs at this time Physical Exam (OB) Vital Signs: Temp Pulse Resp BP Pulse Ox 97.4 F 74 14 120/71 97 06/03/16 02:56 06/03/16 02:56 06/03/16 02:56 06/03/16 02:56 06/03/16 02:56 Intake & Output 06/02/16 06/03/16 06/04/16 06:59 06:59 06:59 Intake Total 2110 Output Total 2700 Balance -590 Weight 83 kg - General General Appearance: Appears well In distress: None - PIH/Pre-Eclampsia Headache: Absent - Dressing Removed: No Incision: Dressing - opsite- small amount of old blood noted and circled - Bilateral Tubal Ligation Dressing Removed: No - Lochia Lochia Amount: Scant < 10 ml Lochia Color: Rubra/Red - Abdomen Description: Soft, Round Hernia Present: No Fundal Description: Firm, Midline Fundal Height: u/u - u/2 - Respiratory Respiratory Status: No respiratory distress - Extremities Upper extremity: Normal inspection Lower extremities: Normal inspection - Neurological Cognition: Normal Orientation: AAOx4 - Psychological Associated symptoms: Normal affect, Normal mood Objective-Diagnostic Laboratory: 06/03/16 06:11 06/03/16 06:11 WBC 11.7 H RBC 2.87 L Hgb 8.6 L D Hct 25.5 L MCV 89 MCH 30.1 MCHC 33.9 RDW 14.4 H Plt Count 162 Assessment and Plan(PN) - Assessment and Plan (1) Status post repeat low transverse section Is this a current diagnosis for this admission?: Yes (2) Anemia Qualifiers: Anemia type: unspecified type Qualified Code(s): D64.9 - Anemia, unspecified Is this a current diagnosis for this admission?: Yes (3) Gestational diabetes Qualifiers: Gestational diabetes mellitus control: unspecified Is this a current diagnosis for this admission?: Yes - Time Spent with Patient Time with patient: Less than 15 minutes Medications reviewed and adjusted accordingly: Yes - Disposition Anticipated Discharge: Home Within: within 24 hours
[2016-06-04] MEDS: IBUPROFEN 800 MG TABLET PO SCH ×3 (00:19→11:07)
[2016-06-04] MEDS: OXYCODONE-ACETAMINOPHEN 5-325 MG TABLET PO PRN ×2 (03:29→08:35)
--- NOTE | 2016-06-04 08:33 | PDOC PROGRESS REPORT ---
Subjective-OB Subjective: Post Delivery Day: 25 year old. Denies any needs at this time Doing well, in room with hsb, nursery nurse discussing baby's condition, tearful baby still in NICU, , pain under control, scant bleeding, passing gas, voiding, diet taken well Physical Exam (OB) Vital Signs: Temp Pulse Resp BP Pulse Ox 98.5 F 88 20 135/78 H 98 06/04/16 03:25 06/04/16 03:25 06/04/16 03:25 06/04/16 03:25 06/04/16 03:25 Intake & Output 06/03/16 06/04/16 06/05/16 06:59 06:59 06:59 Intake Total 2110 Output Total 2700 Balance -590 - PIH/Pre-Eclampsia Headache: Absent Epigastric Pain: No Visual Changes: No - Dressing Removed: No Incision: Dressing - opsite- small amount of old blood noted and circled - Bilateral Tubal Ligation Dressing Removed: No - Lochia Lochia Amount: Scant < 10 ml Lochia Color: Rubra/Red - Abdomen Description: Firm, Flat Hernia Present: No Fundal Description: Firm Fundal Height: u/u - u/2 Objective-Diagnostic Laboratory: 06/03/16 06:11 Assessment and Plan(PN) - Assessment and Plan (1) Anemia Qualifiers: Anemia type: iron deficiency Is this a current diagnosis for this admission?: Yes (3) Gestational diabetes Qualifiers: Gestational diabetes mellitus control: diet-controlled Is this a current diagnosis for this admission?: Yes (4) Status post repeat low transverse section Is this a current diagnosis for this admission?: Yes - Time Spent with Patient Time with patient: Less than 15 minutes Medications reviewed and adjusted accordingly: Yes - Disposition Anticipated Discharge: Home Within: Other - home today
[2016-06-04 08:35] VITALS: BP 105/94
--- NOTE | 2016-06-04 08:39 | PDOC DISCHARGE SUMMARY ---
Final Diagnosis Discharge Date: 06/04/16 - Final Diagnosis (1) Anemia Is this a current diagnosis for this admission?: Yes (2) Delivery by elective caesarean section Is this a current diagnosis for this admission?: Yes (3) Gestational diabetes Is this a current diagnosis for this admission?: Yes (4) Status post repeat low transverse section Is this a current diagnosis for this admission?: Yes Discharge Data - Discharge Medication Home Medications: Pnv95/Ferrous Fumarate/FA [ Formula Tablet] 1 tab PO DAILY 04/28/16 Ibuprofen [Motrin 800 mg Tablet] 800 mg PO Q6 #60 tablet 06/04/16 Oxycodone HCl/Acetaminophen [Percocet 5-325 mg Tablet] 1 tab PO Q4HP PRN #30 tablet 06/04/16 Pnv W-O Ca No5/Fe Fumarate/FA [-U Multiple Vitamin Capsule] 1 cap PO DAILY #0 capsule 06/04/16 Gestational Age: 39 Reason(s) for Admission: Ceasarean Section-Repeat, Gestional Diabetes Procedures: NST, Ultrasound Intrapartum Procedure(s): : Low Cervical, Transverse - [place] Data Baby 1 Female Weight: 3.515 kg Home with Mother: No Complications: Yes - pneumo - Diagnosis Test Laboratory: Temp Pulse Resp BP Pulse Ox 98.3 F 72 20 105/94 H 99 06/04/16 08:00 06/04/16 08:00 06/04/16 08:00 06/04/16 08:00 06/04/16 08:00 06/01/16 06/01/16 06/03/16 10:30 11:15 06:11 RBC 4.05 2.87 L Hgb 12.1 8.6 L D Hct 35.7 L 25.5 L Urine Opiates Screen NEGATIVE - Discharge information/Instructions Discharge Activity: Activity As Tolerated, No Lifting Over 10 Pounds, No Lifting /Push/Pulling, Pelvic Rest Discharge Diet: As Tolerated, Regular Disposition: HOME, SELF-CARE Follow up with: [facility] in: 1, Weeks - staying in nesting room, reviewing S&S to report
[2016-06-04] MEDS: DOCUSATE SODIUM 100 MG CAPSULE PO SCH (11:06)
[2016-06-04] MEDS: PRENATAL VITAMIN W-O CA NO5/FE FUMARATE/FA CAPSULE PO SCH (11:06)
--- NOTE | 2016-06-04 14:37 | L&D Discharge Summary ---
OB Discharge Summary Datetime Report Generated by CPN: 06/04/2016 14:37 DISCHARGE DIAGNOSIS Diagnosis/Symptoms: False Labor Diagnoses/Symptoms Other: Reactive NST Gestation: 39.1 Number of Babies in Womb: 1 Parity: 1 DIET/ACTIVITY/RESTRICTIONS Diet: Regular Activity: Normal Activity TEACHING/INSTRUCTIONS/REFERRALS Instructions Given To: Patient and spouse Instructions Understood: Patient Verbalized Understanding; Support Person Verbalized Understanding Referrals: None Educational Materials- Other: Kick Counts and Term Labor DISCHARGE INFORMATION Discharged AMA: No Discharge Date/Time: 05/20/2016 00:05 Discharged To: Home Discharge Provider Name: Dr Mclain Accompanied By: Spouse Discharge Method: Ambulatory Condition: Stable FOLLOW UP INFORMATION Follow Up With: [facility] Follow Up On: As Scheduled Follow Up Phone Number: [facility] - Comments: Patient without questions at this time. Advised patient to return for contractions every 8 minutes, decreased movement, leaking of fluid, and bleeding like a period. GENERAL INSTR-CALL PROVIDER IF: Contractions: Contractions or cramps become more frequent than 8 in one hour or 4 in 20 minutes; Regular painful contractions every 5 minutes or less for one hour. Time your contractions from the beginning of one to the beginning of the next Pressure: Pressure in your vagina or lower abdomen that may feel like the baby is pushing down Period Like Cramps: Period-like cramps or low dull backache that may come and go Cramps/Diarrhea: Abdominal cramps that may be accompanied by diarrhea Gush of Fluid/Blood: Gush of fluid or blood from your vagina (it is normal to have spotting after vaginal exam or intercourse) Vaginal Discharge: Change in the type or amount of vaginal discharge Decreased Movement: Your baby is not moving as much as usual- 4 movements in 1 hour after drinking and resting on side Temperature: Temperature greater than 100.0(F) orally
--- NOTE | 2016-06-09 22:47 | L&D Discharge Summary ---
OB Discharge Summary Datetime Report Generated by CPN: 06/09/2016 22:45 DISCHARGE DIAGNOSIS Diagnosis/Symptoms: False Labor Diagnoses/Symptoms Other: Reactive NST Gestation: 39.2 Number of Babies in Womb: 1 Parity: 1 DIET/ACTIVITY/RESTRICTIONS Diet: Regular Activity: Normal Activity TEACHING/INSTRUCTIONS/REFERRALS Instructions Given To: Patient and spouse Instructions Understood: Patient Verbalized Understanding; Support Person Verbalized Understanding Referrals: None Educational Materials- Other: Kick Counts and Term Labor DISCHARGE INFORMATION Discharged AMA: No Discharge Date/Time: 05/20/2016 00:05 Discharged To: Home Discharge Provider Name: Dr Mclain Accompanied By: Spouse Discharge Method: Ambulatory Condition: Stable FOLLOW UP INFORMATION Follow Up With: [facility] Follow Up On: As Scheduled Follow Up Phone Number: [employer] - Comments: Patient without questions at this time. Advised patient to return for contractions every 8 minutes, decreased movement, leaking of fluid, and bleeding like a period. GENERAL INSTR-CALL PROVIDER IF: Contractions: Contractions or cramps become more frequent than 8 in one hour or 4 in 20 minutes; Regular painful contractions every 5 minutes or less for one hour. Time your contractions from the beginning of one to the beginning of the next Pressure: Pressure in your vagina or lower abdomen that may feel like the baby is pushing down Period Like Cramps: Period-like cramps or low dull backache that may come and go Cramps/Diarrhea: Abdominal cramps that may be accompanied by diarrhea Gush of Fluid/Blood: Gush of fluid or blood from your vagina (it is normal to have spotting after vaginal exam or intercourse) Vaginal Discharge: Change in the type or amount of vaginal discharge Decreased Movement: Your baby is not moving as much as usual- 4 movements in 1 hour after drinking and resting on side Temperature: Temperature greater than 100.0(F) orally
--- NOTE | 2016-06-09 22:47 | L&D Current Admission ---
Current Admit Datetime Report Generated by CPN: 06/09/2016 22:45 ADMISSION INFORMATION Chief Complaint: Contractions (05/19/2016 23:11:Sheila Pittman, RN)
--- NOTE | 2016-06-09 22:47 | L&D General Admission ---
General Admit Datetime Report Generated by CPN: 06/09/2016 22:45 INFORMATION Patient Age: 25 (03/16/2016 10:51:QS system process) EDC: 06/09/2016 00:00 (04/28/2016 12:29:Vero Mclain RN) LMP: 09/03/2015 00:00 (04/28/2016 12:29:Lucien Rao RN) : 2 (04/28/2016 12:29:Lucien Rao RN) Para: 1 (04/28/2016 12:29:Lucien Rao RN) Term: 1 (04/28/2016 12:29:Lorene Atkinson RN) : 0 (04/28/2016 12:29:Lorene Atkinson RN) Spontaneous Abortions: 0 (04/28/2016 12:29:Lorene Atkinson RN) Induced Abortions: 0 (04/28/2016 12:29:Lorene Atkinson RN) Livin (04/28/2016 12:29:Lorene Atkinson RN) Cesareans: 1 (04/28/2016 12:29:Lorene Atkinson RN) VBACs: 0 (04/28/2016 12:29:Lorene Atkinson RN) Ectopic: 0 (04/28/2016 12:29:Lorene Atkinson RN) Multiple Births: 0 (04/28/2016 12:29:Sheila Pittman RN) Baby, Number in Womb: 1 (04/28/2016 12:29:Lorene Atkinson RN) CARE Primary Mill Supervisor: [facility] (04/28/2016 12:29:Lucien Rao RN) Mill Supervisor Other: [facility] (04/28/2016 12:29:Lucien Rao RN) Month of 1st Visit: October 2015 (04/28/2016 12:29:Lucien Rao RN) Adequate Care: Yes (04/28/2016 12:29:Lucien Rao RN) Prepregnancy Weight (lb): 145 (04/28/2016 12:29:Lucien Rao RN) Prepregnancy Weight (kg): 65.9 (04/28/2016 12:29:QS system process) Height (in): 65 (06/02/2016 06:37:QS system process) Height (in): 61 (06/02/2016 06:10:QS system process) Height (in): 61 (06/02/2016 06:09:QS system process) Height (in): 61 (05/19/2016 22:57:QS system process) Height (in): 80 (04/28/2016 12:37:QS system process) ALLERGIES Medication Allergy: No (04/28/2016 12:29:Lucien Rao RN) Medication Allergies: No Known Allergies (06/01/2016) (06/02/2016 06:09:QS system process) Medication Allergies: No Known Allergies (05/19/2016) (05/19/2016 22:55:QS system process) Medication Allergies: No Known Allergies (04/28/2016) (04/28/2016 12:37:QS system process) Latex Allergy: No Latex Allergies (04/28/2016 12:29:Lucien Rao RN) Food Allergies: none (04/28/2016 12:29:Sheila Pittman RN) Environmental Allergies: none (04/28/2016 12:29:Sheila Pittman RN) COMMUNICATION Primary Language: Hong Konger (04/28/2016 12:29:Lucien Rao RN) Medical Tx Preferred Language: Hong Konger (04/28/2016 12:29:Sheila Pittman RN) Communication Barrier(s): None (04/28/2016 12:29:Lucien Rao RN) DEMOGRAPHICS Address: [address] [place] [address] (06/02/2016 06:09:QS system process) Address: [address] [place] [address] (03/16/2016 10:51:QS system process) Zipcode: [address] (03/16/2016 10:51:QS system process) Home (03/16/2016 10:51:QS system process) SSN: [id number] (03/16/2016 10:51:QS system process) Next of Kin Name: ROBIN NASCIMENTO (03/16/2016 10:51:QS system process) Next of Kin (06/02/2016 06:09:QS system process) Next of Kin (03/16/2016 10:51:QS system process) Next of Kin Relationship: SPO (03/16/2016 10:51:QS system process) Date of : 1990 (03/16/2016 10:51:QS system process) Marital Status: (03/16/2016 10:51:QS system process) Sex: Female (03/16/2016 10:51:QS system process) Race: (03/16/2016 10:51:QS system process) Ethnicity: Non- or (03/16/2016 10:51:QS system process) Buddhism: Amish (03/16/2016 10:51:QS system process) DRUG AND ALCOHOL USE Alcohol: No (04/28/2016 12:29:Sheila Pittman, RN) Cigarettes: Current Some Day Smoker. [id number] (04/28/2016 12:29:Sheila Pittman, RN) Marijuana: No (04/28/2016 12:29:Sheila Pittman, RN) Cocaine: No (04/28/2016 12:29:Sheila Pittman, RN) Other Illicit Drugs: No (04/28/2016 12:29:Sheila Pittman, RN) VACCINE HISTORY Influenza Vaccine: No (04/28/2016 12:29:Sheila Pittman, RN) Pneumococcal Vaccine: No (04/28/2016 12:29:Sheila Pittman, RN) Tetanus Vaccine: Yes (04/28/2016 12:29:Sheila Pittman, RN) Tdap Vaccine: Yes (04/28/2016 12:29:Sheila Pittman, RN) Hepatitis B Vaccine: No (04/28/2016 12:29:Sheila Pittman, RN) Guard Lieutenant: [facility] (04/28/2016 12:29:Sheila Pittman RN) Feeding Preference: Breast (04/28/2016 12:29:Sheila Pittman RN) Benefit of Breast Feed Discussed: Yes (04/28/2016 12:29:Sheila Pittman RN) Circumcision: N/A (04/28/2016 12:29:Sheila Pittman RN) Classes Attended: No (04/28/2016 12:29:Sheila Pittman RN) Tubal Ligation: Yes (04/28/2016 12:29:Sheila Pittman RN) Tubal Authorization Signed: Yes (04/28/2016 12:29:Shiela Pittman RN) Consent: N/A (04/28/2016 12:29:Sheila Pittman RN) Consent Signed: No (04/28/2016 12:29:Sheila Pittman RN) Pain Management Plans: Spinal (04/28/2016 12:29:Sheila Pittman RN) Plans for Labor and Delivery: None (04/28/2016 12:29:Sheila Pittman RN) Support Person: Robin (04/28/2016 12:29:Sheila Pittman RN) Support Person Relationship: (04/28/2016 12:29:Sheila Pittman RN) Cultural/Spritual Practice: No (04/28/2016 12:29:Sheila Pittman RN) Spir/Cult Dietary Needs: No (04/28/2016 12:29:Sheila Pittman RN) LIVING SITUATION/DISCHARGE PLAN Living Arrangements: House (04/28/2016 12:29:Sheila Pittman RN) Adequate Access to:: Electric; Heat; Refrigeration; Plumbing/Running water; Phone; Transportation (04/28/2016 12:29:Sheila Pittman RN) WIC Program: Yes (04/28/2016 12:29:Sheila Pittman RN) Discharge Ios Software Engineer Person: Robin (04/28/2016 12:29:Sheila Pittman RN) Person to Help after Discharge: Robin (04/28/2016 12:29:Sheila Pittman RN) Currently Using Commun Resources: Yes (04/28/2016 12:29:Sheila Pittman RN) Specify Current Resource Used: Medicaid (04/28/2016 12:29:Sheila Pittman RN) Outside Agency/Family Court Justice: No (04/28/2016 12:29:Sheila Pittman RN) Car Seat for Discharge: Yes (04/28/2016 12:29:Sheila Pittman RN) Adoption Requested: No (04/28/2016 12:29:Sheila Pittman RN) Pt Contact w/ Post : N/A (04/28/2016 12:29:Sheila Pittman RN) LABS Blood Type: O Positive (04/28/2016 12:29:Sheila Pittman RN) Antibody Screen: negative (04/28/2016 12:29:Sheila Pittman RN) Hemoglobin: 8.6 L (06/03/2016 06:11:QS system process) Hemoglobin: 12.1 (06/01/2016 11:15:QS system process) Hematocrit: 25.5 L (06/03/2016 06:11:QS system process) Hematocrit: 35.7 L (06/01/2016 11:15:QS system process) MCV: 89 (06/03/2016 06:11:QS system process) MCV: 88 (06/01/2016 11:15:QS system process) Group Beta Strep: negative (04/28/2016 12:29:Sheila Pittman RN) Gonorrhea: Negative (04/28/2016 12:29:Sheila Pittman RN) Chlamydia: Negative (04/28/2016 12:29:Sheila Pittman RN) RPR/VDRL: Nonreactive (04/28/2016 12:29:Sheila Pittman RN) HIV Exposure Test: Negative (04/28/2016 12:29:Sheila Pittman RN) Rubella: Immune (04/28/2016 12:29:Sheila Pittman RN) OB/PREVIOUS HISTORY LMP: 09/03/2015 00:00 (04/28/2016 12:29:Lucien Rao RN) Previous Procedures: Ultrasound; NST (04/28/2016 12:29:Sheila Pittman RN) Current Procedures: Ultrasound; NST (04/28/2016 12:29:Sheila Pittman RN) History of Previous : Yes (04/28/2016 12:29:Sheila Pittman RN) History of Gestational Diabetes: No (04/28/2016 12:29:Sheila Pittman RN) History of PIH: No (04/28/2016 12:29:Sheila Pittman RN) History of Incompetent Cervix: No (04/28/2016 12:29:Sheila Pittman RN) History of Placenta Previa/Abrup: No (04/28/2016 12:29:Sheila Pittman RN) History of Macrosomia: No (04/28/2016 12:29:Sheila Pittman RN) History of IUGR: No (04/28/2016 12:29:Sheila Pittman RN) History of Hemorrhage: No (04/28/2016 12:29:Sheila Pittman RN) History of Loss/Stillborn: No (04/28/2016 12:29:Sheila Pittman RN) History of : No (04/28/2016 12:29:Sheila Pittman RN) History of D (Rh) Sensitization: No (04/28/2016 12:29:Sheila Pittman RN) History Recurrent Loss/Stillborn: No (04/28/2016 12:29:Sheila Pittman RN) History Depression/PP Depression: No (04/28/2016 12:29:Sheila Pittman RN) History of Uterine Anomaly/MAHOGANY: No (04/28/2016 12:29:Sheila Pittman RN) History of Infertility: No (04/28/2016 12:29:Sheila Pittman RN) History of ART Treatment: No (04/28/2016 12:29:Sheila Pittman RN) History of MAHOGANY: No (04/28/2016 12:29:Sheila Pittman RN) Comments Obstetrical History: G1 06/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, 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; Aicardi Syndrome Shunt, Epilepsy G2 Current (04/28/2016 12:29:Lorene Atkinson RN) MEDICAL HISTORY Med Hx Diabetes: Yes (04/28/2016 12:29:Lucien Rao RN) Diabetes Type: Gestational Diabetes (04/28/2016 12:29:Lucien Rao RN) Med Hx Hypertension: No (04/28/2016 12:29:Sheila Pittman RN) Med Hx Heart Disease: No (04/28/2016 12:29:Sheila Pittman RN) Med Hx Autoimmune Disorder: No (04/28/2016 12:29:Sheila Pittman RN) Med Hx Kidney Disease/UTI: No (04/28/2016 12:29:Sheila Pittman RN) Med Hx Neurologic/Epilepsy: No (04/28/2016 12:29:Sheila Pittman RN) Med Hx Psychiatric Disorders: No (04/28/2016 12:29:Sheila Pittman RN) Med Hx Hepatitis/Liver Disease: No (04/28/2016 12:29:Sheila Pittman RN) Med Hx Varicosities/Phlebitis: No (04/28/2016 12:29:Sheila Pittman RN) Med Hx Thyroid Dysfunction: No (04/28/2016 12:29:Sheila Pittmna RN) Med Hx Trauma/Violence: No (04/28/2016 12:29:Sheila Pittman RN) Med Hx Blood Transfusion: No (04/28/2016 12:29:Sheila Pittman RN) Med Hx Pulmonary (Asthma,TB): No (04/28/2016 12:29:Sheila Pittman RN) Med Hx Breast: No (04/28/2016 12:29:Sheila Pittman RN) Med Hx DIRECTOR OF FINANCIAL PLANNING Surgery: No (04/28/2016 12:29:Sheila Pittman RN) Med Hx Hospitalization/Surgery: Yes (04/28/2016 12:29:Lucien Rao RN) Med Hx Anesthetic Complications: No (04/28/2016 12:29:Sheila Pittman RN) Med Hx Abnormal Pap Smear: No (04/28/2016 12:29:Sheila Pittman RN) Other Medical Diseases: No (04/28/2016 12:29:Sheila Pittman RN) Med Hx Significant Family Hx: No (04/28/2016 12:29:Sheila Pittman RN) Details of Med/Surg Hx: Back Surgery; Pleurodynia; Congenital Scoliosis d/t congenital bony malformation, Previous C/S, GDM (04/28/2016 12:29:Lucien Rao RN) INFECTIOUS HISTORY Inf Hx Gonorrhea: No (04/28/2016 12:29:Sheila Pittman RN) Inf Hx Chlamydia: No (04/28/2016 12:29:Sheila Pittman RN) Inf Hx Syphilis: No (04/28/2016 12:29:Sheila Pittman RN) Inf Hx HIV/AIDS: No (04/28/2016 12:29:Sheila Pittman RN) Inf Hx Human Papilloma Virus: No (04/28/2016 12:29:Sheila Pittman RN) Inf Hx Pt/Partner Genital Herpes: No (04/28/2016 12:29:Sheila Pittman RN) Inf Hx Tuberculosis/Exposure: No (04/28/2016 12:29:Sheila Pittman RN) Inf Hx Hepatitis B,C: No (04/28/2016 12:29:Sheila Pittman RN) Inf Hx Rash or Viral Illness: No (04/28/2016 12:29:Sheila Pittman RN) GENETIC HISTORY Gen Hx Age >=35 at GIRISH: No (04/28/2016 12:29:Sheila Pittman RN) Gen Hx Thalassemia: No (04/28/2016 12:29:Sheila Pittman RN) Gen Hx Congenital Heart Defect: No (04/28/2016 12:29:Sheila Pittman RN) Gen Hx Neural Tube Defect: No (04/28/2016 12:29:Sheila Pittman RN) Gen Hx Down's Syndrome: No (04/28/2016 12:29:Sheila Pittman RN) Gen Hx Prasanna-Sachs: No (04/28/2016 12:29:Sheila Pittman RN) Gen Hx Nazario: No (04/28/2016 12:29:Sheila Pittman RN) Gen Hx Familial Dysautonomia: No (04/28/2016 12:29:Sheila Pittman RN) Gen Hx Sickle Cell Disease/Trait: No (04/28/2016 12:29:Sheila Pittman RN) Gen Hx Hemophilia/Blood Disorder: No (04/28/2016 12:29:Sheila Pittman RN) Gen Hx Muscular Dystrophy: No (04/28/2016 12:29:Sheila Pittman RN) Gen Hx Cystic Fibrosis: No (04/28/2016 12:29:Sheila Pittman RN) Gen Hx Huntingtons Chorea: No (04/28/2016 12:29:Sheila Pittman RN) Gen Hx Mental Retardation/Autism: No (04/28/2016 12:29:Sheila Pittman RN) Gen Hx Tested for Fragile X: No (04/28/2016 12:29:Sheila Pittman RN) Gen Hx Other Inher/Chromosomal: No (04/28/2016 12:29:Sheila Pittman RN) Gen Hx Maternal Metabolic DO: No (04/28/2016 12:29:Sheila Pittman RN) Gen Hx Pt Father or FOB Defect: No (04/28/2016 12:29:Sheila Pittman RN) Gen Hx Other Genetic History: No (04/28/2016 12:29:Sheila Pittman RN) Gen Hx Drugs/Meds since LMP: Yes (04/28/2016 12:29:Sheila Pittman RN) Gen Hx Medications: tylenol (04/28/2016 12:29:Sheila Pittman RN)
--- NOTE | 2016-06-10 04:47 | L&D Discharge Summary ---
OB Discharge Summary Datetime Report Generated by CPN: 06/10/2016 04:45 DISCHARGE DIAGNOSIS Diagnosis/Symptoms: False Labor Diagnoses/Symptoms Other: Reactive NST Gestation: 39.2 Number of Babies in Womb: 1 Parity: 1 DIET/ACTIVITY/RESTRICTIONS Diet: Regular Activity: Normal Activity TEACHING/INSTRUCTIONS/REFERRALS Instructions Given To: Patient and spouse Instructions Understood: Patient Verbalized Understanding; Support Person Verbalized Understanding Referrals: None Educational Materials- Other: Kick Counts and Term Labor DISCHARGE INFORMATION Discharged AMA: No Discharge Date/Time: 05/20/2016 00:05 Discharged To: Home Discharge Provider Name: Dr Mclain Accompanied By: Spouse Discharge Method: Ambulatory Condition: Stable FOLLOW UP INFORMATION Follow Up With: [facility] Follow Up On: As Scheduled Follow Up Phone Number: [employer] - Comments: Patient without questions at this time. Advised patient to return for contractions every 8 minutes, decreased movement, leaking of fluid, and bleeding like a period. GENERAL INSTR-CALL PROVIDER IF: Contractions: Contractions or cramps become more frequent than 8 in one hour or 4 in 20 minutes; Regular painful contractions every 5 minutes or less for one hour. Time your contractions from the beginning of one to the beginning of the next Pressure: Pressure in your vagina or lower abdomen that may feel like the baby is pushing down Period Like Cramps: Period-like cramps or low dull backache that may come and go Cramps/Diarrhea: Abdominal cramps that may be accompanied by diarrhea Gush of Fluid/Blood: Gush of fluid or blood from your vagina (it is normal to have spotting after vaginal exam or intercourse) Vaginal Discharge: Change in the type or amount of vaginal discharge Decreased Movement: Your baby is not moving as much as usual- 4 movements in 1 hour after drinking and resting on side Temperature: Temperature greater than 100.0(F) orally
--- NOTE | 2016-06-10 04:47 | L&D General Admission ---
General Admit Datetime Report Generated by CPN: 06/10/2016 04:45 Height (in): 65 (06/02/2016 06:37:QS system process) Height (in): 61 (06/02/2016 06:10:QS system process) Height (in): 61 (06/02/2016 06:09:QS system process) Medication Allergies: No Known Allergies (06/01/2016) (06/02/2016 06:09:QS system process) Address: [address] [place] [id number] (06/02/2016 06:09:QS system process) Next of Kin (06/02/2016 06:09:QS system process) Hemoglobin: 8.6 L (06/03/2016 06:11:QS system process) Hemoglobin: 12.1 (06/01/2016 11:15:QS system process) Hematocrit: 25.5 L (06/03/2016 06:11:QS system process) Hematocrit: 35.7 L (06/01/2016 11:15:QS system process) MCV: 89 (06/03/2016 06:11:QS system process) MCV: 88 (06/01/2016 11:15:QS system process)
--- NOTE | 2016-06-10 10:46 | L&D Current Admission ---
Current Admit Datetime Report Generated by CPN: 06/10/2016 10:45 ADMISSION INFORMATION Chief Complaint: Contractions (05/19/2016 23:11:Sheila Pittman, RN)
--- NOTE | 2016-06-10 10:47 | L&D Discharge Summary ---
OB Discharge Summary Datetime Report Generated by CPN: 06/10/2016 10:45 DISCHARGE DIAGNOSIS Diagnosis/Symptoms: False Labor Diagnoses/Symptoms Other: Reactive NST Gestation: 39.2 Number of Babies in Womb: 1 Parity: 1 DIET/ACTIVITY/RESTRICTIONS Diet: Regular Activity: Normal Activity TEACHING/INSTRUCTIONS/REFERRALS Instructions Given To: Patient and spouse Instructions Understood: Patient Verbalized Understanding; Support Person Verbalized Understanding Referrals: None Educational Materials- Other: Kick Counts and Term Labor DISCHARGE INFORMATION Discharged AMA: No Discharge Date/Time: 05/20/2016 00:05 Discharged To: Home Discharge Provider Name: Dr Mclain Accompanied By: Spouse Discharge Method: Ambulatory Condition: Stable FOLLOW UP INFORMATION Follow Up With: [facility] Follow Up On: As Scheduled Follow Up Phone Number: [facility] - Comments: Patient without questions at this time. Advised patient to return for contractions every 8 minutes, decreased movement, leaking of fluid, and bleeding like a period. GENERAL INSTR-CALL PROVIDER IF: Contractions: Contractions or cramps become more frequent than 8 in one hour or 4 in 20 minutes; Regular painful contractions every 5 minutes or less for one hour. Time your contractions from the beginning of one to the beginning of the next Pressure: Pressure in your vagina or lower abdomen that may feel like the baby is pushing down Period Like Cramps: Period-like cramps or low dull backache that may come and go Cramps/Diarrhea: Abdominal cramps that may be accompanied by diarrhea Gush of Fluid/Blood: Gush of fluid or blood from your vagina (it is normal to have spotting after vaginal exam or intercourse) Vaginal Discharge: Change in the type or amount of vaginal discharge Decreased Movement: Your baby is not moving as much as usual- 4 movements in 1 hour after drinking and resting on side Temperature: Temperature greater than 100.0(F) orally
--- NOTE | 2016-06-10 10:47 | L&D General Admission ---
General Admit Datetime Report Generated by CPN: 06/10/2016 10:45 INFORMATION Patient Age: 25 (03/16/2016 10:51:QS system process) EDC: 06/09/2016 00:00 (04/28/2016 12:29:Vero Mclain RN) LMP: 09/03/2015 00:00 (04/28/2016 12:29:Lucien Rao RN) : 2 (04/28/2016 12:29:Lucien Rao RN) Para: 1 (04/28/2016 12:29:Lucien Rao RN) Term: 1 (04/28/2016 12:29:Lorene Atkinson RN) : 0 (04/28/2016 12:29:Lorene Atkinson RN) Spontaneous Abortions: 0 (04/28/2016 12:29:Lorene Atkinson RN) Induced Abortions: 0 (04/28/2016 12:29:Lorene Atkinson RN) Livin (04/28/2016 12:29:Lorene Atkinson RN) Cesareans: 1 (04/28/2016 12:29:Lorene Atkinson RN) VBACs: 0 (04/28/2016 12:29:Lorene Atkinson RN) Ectopic: 0 (04/28/2016 12:29:Lorene Atkinson RN) Multiple Births: 0 (04/28/2016 12:29:Sheila Pittman RN) Baby, Number in Womb: 1 (04/28/2016 12:29:Lorene Atkinson RN) CARE Primary Winder Tender: [facility] (04/28/2016 12:29:Lucien Rao RN) Winder Tender Other: [facility] (04/28/2016 12:29:Lucien Rao RN) Month of 1st Visit: October 2015 (04/28/2016 12:29:Lucien Rao RN) Adequate Care: Yes (04/28/2016 12:29:Lucien Rao RN) Prepregnancy Weight (lb): 145 (04/28/2016 12:29:Lucien Rao RN) Prepregnancy Weight (kg): 65.9 (04/28/2016 12:29:QS system process) Height (in): 65 (06/02/2016 06:37:QS system process) Height (in): 61 (06/02/2016 06:10:QS system process) Height (in): 61 (06/02/2016 06:09:QS system process) Height (in): 61 (05/19/2016 22:57:QS system process) Height (in): 80 (04/28/2016 12:37:QS system process) ALLERGIES Medication Allergy: No (04/28/2016 12:29:Lucien Rao RN) Medication Allergies: No Known Allergies (06/01/2016) (06/02/2016 06:09:QS system process) Medication Allergies: No Known Allergies (05/19/2016) (05/19/2016 22:55:QS system process) Medication Allergies: No Known Allergies (04/28/2016) (04/28/2016 12:37:QS system process) Latex Allergy: No Latex Allergies (04/28/2016 12:29:Lucien Rao RN) Food Allergies: none (04/28/2016 12:29:Sheila Pittman RN) Environmental Allergies: none (04/28/2016 12:29:Sheila Pittman RN) COMMUNICATION Primary Language: Liberian (04/28/2016 12:29:Lucien Rao RN) Medical Tx Preferred Language: Liberian (04/28/2016 12:29:Sheila Pittman RN) Communication Barrier(s): None (04/28/2016 12:29:Lucien Rao RN) DEMOGRAPHICS Address: [address] [place] [address] (06/02/2016 06:09:QS system process) Address: [address] [place] [address] (03/16/2016 10:51:QS system process) Zipcode: [address] (03/16/2016 10:51:QS system process) Home (03/16/2016 10:51:QS system process) SSN: [id number] (03/16/2016 10:51:QS system process) Next of Kin Name: ROBIN NASCIMENTO (03/16/2016 10:51:QS system process) Next of Kin (06/02/2016 06:09:QS system process) Next of Kin (03/16/2016 10:51:QS system process) Next of Kin Relationship: SPO (03/16/2016 10:51:QS system process) Date of : 1990 (03/16/2016 10:51:QS system process) Marital Status: (03/16/2016 10:51:QS system process) Sex: Female (03/16/2016 10:51:QS system process) Race: (03/16/2016 10:51:QS system process) Ethnicity: Non- or (03/16/2016 10:51:QS system process) Anglican: Holiness (03/16/2016 10:51:QS system process) DRUG AND ALCOHOL USE Alcohol: No (04/28/2016 12:29:Sheila Pittman, RN) Cigarettes: Current Some Day Smoker. [id number] (04/28/2016 12:29:Sheila Pittman, RN) Marijuana: No (04/28/2016 12:29:Sheila Pittman, RN) Cocaine: No (04/28/2016 12:29:Sheila Pittman, RN) Other Illicit Drugs: No (04/28/2016 12:29:Sheila Pittman, RN) VACCINE HISTORY Influenza Vaccine: No (04/28/2016 12:29:Sheila Pittman, RN) Pneumococcal Vaccine: No (04/28/2016 12:29:Sheila Pittman, RN) Tetanus Vaccine: Yes (04/28/2016 12:29:Sheila Pittman, RN) Tdap Vaccine: Yes (04/28/2016 12:29:Sheila Pittman, RN) Hepatitis B Vaccine: No (04/28/2016 12:29:Sheila Pittman, RN) Principal Technical Architect: [facility] (04/28/2016 12:29:Sheila Pittman RN) Feeding Preference: Breast (04/28/2016 12:29:Sheila Pittman RN) Benefit of Breast Feed Discussed: Yes (04/28/2016 12:29:Sheila Pittman RN) Circumcision: N/A (04/28/2016 12:29:Sheila Pittman RN) Classes Attended: No (04/28/2016 12:29:Sheila Pittman RN) Tubal Ligation: Yes (04/28/2016 12:29:Sheila Pittman RN) Tubal Authorization Signed: Yes (04/28/2016 12:29:Sheila Pittman RN) Consent: N/A (04/28/2016 12:29:Sheila Pittman RN) Consent Signed: No (04/28/2016 12:29:Sheila Pittman RN) Pain Management Plans: Spinal (04/28/2016 12:29:Sheila Pittman RN) Plans for Labor and Delivery: None (04/28/2016 12:29:Sheila Pittman RN) Support Person: Robin (04/28/2016 12:29:Sheila Ptitman RN) Support Person Relationship: (04/28/2016 12:29:Sheila Pittman RN) Cultural/Spritual Practice: No (04/28/2016 12:29:Sheila Pittman RN) Spir/Cult Dietary Needs: No (04/28/2016 12:29:Sheila Pittman RN) LIVING SITUATION/DISCHARGE PLAN Living Arrangements: House (04/28/2016 12:29:Sheila Pittman RN) Adequate Access to:: Electric; Heat; Refrigeration; Plumbing/Running water; Phone; Transportation (04/28/2016 12:29:Sheila Pittman RN) WIC Program: Yes (04/28/2016 12:29:Sheila Pittman RN) Discharge Nut Grader Person: Robin (04/28/2016 12:29:Sheila Pittman RN) Person to Help after Discharge: Robin (04/28/2016 12:29:Sheila Pittman RN) Currently Using Commun Resources: Yes (04/28/2016 12:29:Sheila Pittman RN) Specify Current Resource Used: Medicaid (04/28/2016 12:29:Sheila Pittman RN) Outside Agency/Street Flusher Driver: No (04/28/2016 12:29:Sheila Pittman RN) Car Seat for Discharge: Yes (04/28/2016 12:29:Sheila Pittman RN) Adoption Requested: No (04/28/2016 12:29:Sheila Pittman RN) Pt Contact w/ Post : N/A (04/28/2016 12:29:Sheila Pittman RN) LABS Blood Type: O Positive (04/28/2016 12:29:Sheila Pittman RN) Antibody Screen: negative (04/28/2016 12:29:Sheila Pittman RN) Hemoglobin: 8.6 L (06/03/2016 06:11:QS system process) Hemoglobin: 12.1 (06/01/2016 11:15:QS system process) Hematocrit: 25.5 L (06/03/2016 06:11:QS system process) Hematocrit: 35.7 L (06/01/2016 11:15:QS system process) MCV: 89 (06/03/2016 06:11:QS system process) MCV: 88 (06/01/2016 11:15:QS system process) Group Beta Strep: negative (04/28/2016 12:29:Sheila Pittman RN) Gonorrhea: Negative (04/28/2016 12:29:Sheila Pittman RN) Chlamydia: Negative (04/28/2016 12:29:Sheila Pittman RN) RPR/VDRL: Nonreactive (04/28/2016 12:29:Sheila Pittman RN) HIV Exposure Test: Negative (04/28/2016 12:29:Sheila Pittman RN) Rubella: Immune (04/28/2016 12:29:Sheila Pittman RN) OB/PREVIOUS HISTORY LMP: 09/03/2015 00:00 (04/28/2016 12:29:Lucien Rao RN) Previous Procedures: Ultrasound; NST (04/28/2016 12:29:Sheila Pittman RN) Current Procedures: Ultrasound; NST (04/28/2016 12:29:Sheila Pittman RN) History of Previous : Yes (04/28/2016 12:29:Sheila Pittman RN) History of Gestational Diabetes: No (04/28/2016 12:29:Sheila Pittman RN) History of PIH: No (04/28/2016 12:29:Sheila Pittman RN) History of Incompetent Cervix: No (04/28/2016 12:29:Sheila Pittman RN) History of Placenta Previa/Abrup: No (04/28/2016 12:29:Sheila Pittman RN) History of Macrosomia: No (04/28/2016 12:29:Sheila Pittman RN) History of IUGR: No (04/28/2016 12:29:Sheila Pittman RN) History of Hemorrhage: No (04/28/2016 12:29:Sheila Pittman RN) History of Loss/Stillborn: No (04/28/2016 12:29:Sheila Pittman RN) History of : No (04/28/2016 12:29:Sheila Pittman RN) History of D (Rh) Sensitization: No (04/28/2016 12:29:Sheila Pittman RN) History Recurrent Loss/Stillborn: No (04/28/2016 12:29:Sheila Pittman RN) History Depression/PP Depression: No (04/28/2016 12:29:Sheila Pittman RN) History of Uterine Anomaly/MAHOGANY: No (04/28/2016 12:29:Sheila Pittman RN) History of Infertility: No (04/28/2016 12:29:Sheila Pittman RN) History of ART Treatment: No (04/28/2016 12:29:Sheila Pittman RN) History of MAHOGANY: No (04/28/2016 12:29:Sheila Pittman RN) Comments Obstetrical History: G1 06/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, 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; Aicardi Syndrome Shunt, Epilepsy G2 Current (04/28/2016 12:29:Lorene Atkinson RN) MEDICAL HISTORY Med Hx Diabetes: Yes (04/28/2016 12:29:Lucien Rao RN) Diabetes Type: Gestational Diabetes (04/28/2016 12:29:Lucien Rao RN) Med Hx Hypertension: No (04/28/2016 12:29:Sheila Pittman RN) Med Hx Heart Disease: No (04/28/2016 12:29:Sheila Pittman RN) Med Hx Autoimmune Disorder: No (04/28/2016 12:29:Sheila Pittman RN) Med Hx Kidney Disease/UTI: No (04/28/2016 12:29:Sheila Pittman RN) Med Hx Neurologic/Epilepsy: No (04/28/2016 12:29:Sheila Pittman RN) Med Hx Psychiatric Disorders: No (04/28/2016 12:29:Sheila Pittman RN) Med Hx Hepatitis/Liver Disease: No (04/28/2016 12:29:Sheila Pittman RN) Med Hx Varicosities/Phlebitis: No (04/28/2016 12:29:Sheila Pittman RN) Med Hx Thyroid Dysfunction: No (04/28/2016 12:29:Sheila Pittman RN) Med Hx Trauma/Violence: No (04/28/2016 12:29:Sheila Pittman RN) Med Hx Blood Transfusion: No (04/28/2016 12:29:Sheila Pittman RN) Med Hx Pulmonary (Asthma,TB): No (04/28/2016 12:29:Sheila Pittman RN) Med Hx Breast: No (04/28/2016 12:29:Sheila Pittman RN) Med Hx SECURITY AMBASSADOR Surgery: No (04/28/2016 12:29:Sheila Pittman RN) Med Hx Hospitalization/Surgery: Yes (04/28/2016 12:29:Lucien Rao RN) Med Hx Anesthetic Complications: No (04/28/2016 12:29:Sheila Pittman RN) Med Hx Abnormal Pap Smear: No (04/28/2016 12:29:Sheila Pittman RN) Other Medical Diseases: No (04/28/2016 12:29:Sheila Pittman RN) Med Hx Significant Family Hx: No (04/28/2016 12:29:Sheila Pittman RN) Details of Med/Surg Hx: Back Surgery; Pleurodynia; Congenital Scoliosis d/t congenital bony malformation, Previous C/S, GDM (04/28/2016 12:29:Lucien Rao RN) INFECTIOUS HISTORY Inf Hx Gonorrhea: No (04/28/2016 12:29:Sheila Pittman RN) Inf Hx Chlamydia: No (04/28/2016 12:29:Sheila Pittman RN) Inf Hx Syphilis: No (04/28/2016 12:29:Sheila Pittman RN) Inf Hx HIV/AIDS: No (04/28/2016 12:29:Sheila Pittman RN) Inf Hx Human Papilloma Virus: No (04/28/2016 12:29:Sheila Pittman RN) Inf Hx Pt/Partner Genital Herpes: No (04/28/2016 12:29:Sheila Pittman RN) Inf Hx Tuberculosis/Exposure: No (04/28/2016 12:29:Sheila Pittman RN) Inf Hx Hepatitis B,C: No (04/28/2016 12:29:Sheila Pittman RN) Inf Hx Rash or Viral Illness: No (04/28/2016 12:29:Sheila Pittman RN) GENETIC HISTORY Gen Hx Age >=35 at GIRISH: No (04/28/2016 12:29:Sheila Pittman RN) Gen Hx Thalassemia: No (04/28/2016 12:29:Sheila Pittman RN) Gen Hx Congenital Heart Defect: No (04/28/2016 12:29:Sheila Pittman RN) Gen Hx Neural Tube Defect: No (04/28/2016 12:29:Sheila Pittman RN) Gen Hx Down's Syndrome: No (04/28/2016 12:29:Sheila Pittman RN) Gen Hx Prasanna-Sachs: No (04/28/2016 12:29:Sheila Pittman RN) Gen Hx Nazario: No (04/28/2016 12:29:Sheila Pittman RN) Gen Hx Familial Dysautonomia: No (04/28/2016 12:29:Sheila Pittman RN) Gen Hx Sickle Cell Disease/Trait: No (04/28/2016 12:29:Sheila Pittman RN) Gen Hx Hemophilia/Blood Disorder: No (04/28/2016 12:29:Sheila Pittman RN) Gen Hx Muscular Dystrophy: No (04/28/2016 12:29:Sheila Pittman RN) Gen Hx Cystic Fibrosis: No (04/28/2016 12:29:Sheila Pittman RN) Gen Hx Huntingtons Chorea: No (04/28/2016 12:29:Sheila Pittman RN) Gen Hx Mental Retardation/Autism: No (04/28/2016 12:29:Sheila Pittman RN) Gen Hx Tested for Fragile X: No (04/28/2016 12:29:Sheila Pittman RN) Gen Hx Other Inher/Chromosomal: No (04/28/2016 12:29:Sheila Pittman RN) Gen Hx Maternal Metabolic DO: No (04/28/2016 12:29:Sheila Pittman RN) Gen Hx Pt Father or FOB Defect: No (04/28/2016 12:29:Sheila Pittman RN) Gen Hx Other Genetic History: No (04/28/2016 12:29:Sheila Pittman RN) Gen Hx Drugs/Meds since LMP: Yes (04/28/2016 12:29:Sheila Pittman RN) Gen Hx Medications: tylenol (04/28/2016 12:29:Sheila Pittman RN)
== END 2016-06-04 11:37 | disposition home or self-care (01) | DRG 766 ==
LOC: 2N 06:08
PROVIDERS: ADMIT Specialist; ATTEND Specialist
PROC: 0UL70CZ Occlusion of Bilateral Fallopian Tubes with Extraluminal Device, Open Approach (ICD-10-PCS; 2016-06-02)
PROC: 10D00Z1 Extraction of Products of Conception, Low, Open Approach (ICD-10-PCS; principal; 2016-06-02 07:45)
DX: O34.211 Maternal care for low transverse scar from previous cesarean delivery (principal); Z37.0 Single live birth; Z3A.39 39 weeks gestation of pregnancy; Z30.2 Encounter for sterilization; O99.02 Anemia complicating childbirth; D64.9 Anemia, unspecified; O24.429 Gestational diabetes mellitus in childbirth, unspecified control
CPT/HCPCS: 1961; 36415; 59025; 80048; 80307; 81001; 82962; 85025; 85027; 86850; 86900; 86901; 94799; J0131; J1100; J1170; J1885; J2250; J2405; J2590; J2765; J3010; J3490; J7120

== ENCOUNTER 2018-12-04 12:18 | Emergency (ER) | payer OTHER, BC ==
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
== END 2018-12-04 14:31 | disposition home or self-care (01) ==
LOC: ER 12:18
DX: M43.6 Torticollis (principal); V87.7XXA Person injured in collision between other specified motor vehicles (traffic), initial encounter
CPT/HCPCS: 99281

== ENCOUNTER 2019-02-19 21:26 | Emergency (ER) | payer OTHER, BC ==
--- NOTE | 2019-02-19 22:16 | ER Document Report ---
ED Medical Screen (RME) - General Chief Complaint: Leg Injury Stated Complaint: LEG PAIN Time Seen by Provider: 02/19/19 22:09 Notes: 28-year-old female presents with right upper leg/thigh pain and right ankle pain that occurred while at work after an injury. Patient states approximately 30 boxes of heavy things fell onto her leg. Patient has tenderness to her right femur and right medial ankle. I have greeted and performed a rapid initial assessment of this patient. A comprehensive ED assessment and evaluation of the patient, analysis of test results and completion of the medical decision making process with be conducted by additional ED providers. TRAVEL OUTSIDE OF THE [place] IN LAST 30 DAYS: No - Related Data Allergies/Adverse Reactions: No Known Allergies Allergy (Verified 12/04/18 13:37) Past Medical History GI Medical History: Reports: Hx Gastroesophageal Reflux Disease - Psychiatric Medical History: Reports: Hx Depression - teenager - Denies: Hx Bipolar Disorder, Hx Post Traumatic Stress Disorder, Hx Schizophrenia Past Surgical History: Reports: Hx Orthopedic Surgery Physical Exam - Vital signs Vitals: Temp Pulse Resp BP Pulse Ox 98.4 F 103 H 18 134/81 H 97 02/19/19 21:29 02/19/19 21:29 02/19/19 21:29 02/19/19 21:29 02/19/19 21:29 Course - Vital Signs Vital signs: Temp Pulse Resp BP Pulse Ox 98.4 F 103 H 18 134/81 H 97 02/19/19 22:07 02/19/19 21:29 02/19/19 22:07 02/19/19 21:29 02/19/19 22:07
--- NOTE | 2019-02-19 23:11 | RADIOLOGY REPORT (SQ) ---
EXAM DESCRIPTION: XR ANKLE 2 VIEWS COMPLETED DATE/TME: 02/19/2019 22:13 CLINICAL HISTORY: 28 years, Female, injury/pain COMPARISON: None. NUMBER OF VIEWS: 2 TECHNIQUE: 2 view right ankle LIMITATIONS: None. FINDINGS: Negative for acute fracture or dislocation. Prominent plantar heel spurs. Soft tissues are unremarkable IMPRESSION: No acute osseous abnormality copyright 2010 [employer]- All Rights Reserved
--- NOTE | 2019-02-19 23:12 | RADIOLOGY REPORT (SQ) ---
EXAM DESCRIPTION: XR FEMUR 2 VIEWS COMPLETED DATE/TME: 02/19/2019 22:13 CLINICAL HISTORY: 28 years, Female, injury/pain COMPARISON: None. NUMBER OF VIEWS: 4 TECHNIQUE: 4 view right femur LIMITATIONS: None. FINDINGS: Negative for acute fracture or dislocation. Soft tissues are unremarkable. IMPRESSION: Negative exam copyright 2010 [employer]- All Rights Reserved
[2019-02-20] MEDS ORDERED: KETOROLAC TROMETHAMINE 60 MG/2 ML SDV IM ONE (00:36)
--- NOTE | 2019-02-20 00:45 | ER Document Report ---
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 She complains of pain in her right knee and swelling. She is unable to bear weight. She denies any other associated injuries. TRAVEL OUTSIDE OF THE [place] IN LAST 30 DAYS: No - Related Data Allergies/Adverse Reactions: No Known Allergies Allergy (Verified 12/04/18 13:37) Past Medical History - Social History Smoking Status: Unknown if Ever Smoked Family History: Reviewed & Not Pertinent Patient has suicidal ideation: No Patient has homicidal ideation: No GI Medical History: Reports: Hx Gastroesophageal Reflux Disease - Psychiatric Medical History: Reports: Hx Depression - teenager - Denies: Hx Bipolar Disorder, Hx Post Traumatic Stress Disorder, Hx Schizophrenia Past Surgical History: Reports: Hx Section - x2, Hx Orthopedic Surgery - spinal fusion Review of Systems - Review of Systems Notes: Constitutional: Negative for fever. HENT: Negative for sore throat. Eyes: Negative for visual changes. Cardiovascular: Negative for chest pain. Respiratory: Negative for shortness of breath. Gastrointestinal: + Right lower extremity pain, + right knee pain Genitourinary: Negative for dysuria. Musculoskeletal: Negative for back pain. Skin: Negative for rash. Neurological: Negative for headaches, weakness or numbness. 10 point ROS negative except as marked above and in HPI. Physical Exam - Vital signs Vitals: Temp Pulse Resp BP Pulse Ox 98.4 F 103 H 18 134/81 H 97 02/19/19 21:29 02/19/19 21:29 02/19/19 21:29 02/19/19 21:29 02/19/19 21:29 - Notes Notes: PHYSICAL EXAMINATION: Physical Exam: Well-nourished well-developed 28-year-old female in no acute distress NEURO: AOX3; difficulty remembering events, dates; remainder of exam nonfocal in no acute distress HEENT: NC/AT, pupils equal round and reactive to light, MM moist,nares clear, Neck: supple, no adenopathy, no masses. Lungs: clear, no wheezing, no rales no rhonchi CVS: Regular rate and rhythm no murmur gallop or rub Abdomen: Soft active nontender, no masses, no hepatosplenomegaly Ext: Right lower extremity with bruising in the anterior lateral thigh and swelling at the knee, tenderness in the anterior tibiofibular region of the lower leg. No obvious deformity or crepitus noted. Neuro: Alert and responsive, moving all 4 extremities on command, cranial nerves intact. Skin: Intact no open lesions, no rash PSYCH: Normal mood, normal affect. Course - Re-evaluation Re-evalutation: Differential diagnosis Bony injury, ligamentous injury, soft tissue contusion 02/20/19 00:43 X-rays were performed of the right lower extremity femur, tib-fib, no fracture or dislocation was seen. Patient is given Toradol in the emergency department, a knee immobilizer is placed along with crutches. Patient is instructed to use cold packs to the area of pain, use ibuprofen and Tylenol alternating for pain and to follow-up with the work related injury outpatient referral. Patient acknowledges understanding of this plan and is in agreement. - Vital Signs Vital signs: Temp Pulse Resp BP Pulse Ox 98.4 F 103 H 18 134/81 H 97 02/19/19 22:07 02/19/19 21:29 02/19/19 22:07 02/19/19 21:29 02/19/19 22:07 - Diagnostic Test Radiology reviewed: Image reviewed, Reports reviewed - Femur x-ray: No bony injury noted. Ankle x-ray: No fracture or dislocation seen. Discharge - Discharge Clinical Impression: Contusion of right ankle, initial encounter Contusion of right thigh Qualifiers: Encounter type: initial encounter Qualified Code(s): S70.11XA - Contusion of right thigh, initial encounter Contusion of right knee Qualifiers: Encounter type: initial encounter Qualified Code(s): S80.01XA - Contusion of right knee, initial encounter Condition: Good Disposition: HOME, SELF-CARE Instructions: Contusion ([facility]) Additional Instructions: Apply cold pack to the area of pain and swelling, may use ibuprofen and alternate with Tylenol for pain control, wear the knee immobilizer for comfort and use the crutches to ambulate as needed. Please follow-up with your workplace regarding outpatient work-related injury follow-up.
[2019-02-20 01:11] VITALS: BP 124/73
== END 2019-02-20 01:08 | disposition home or self-care (01) ==
LOC: ER 21:26
DX: S70.11XA Contusion of right thigh, initial encounter (principal); S90.01XA Contusion of right ankle, initial encounter; S80.01XA Contusion of right knee, initial encounter; M79.604 Pain in right leg; M25.561 Pain in right knee; M79.89 Other specified soft tissue disorders; W22.8XXA Striking against or struck by other objects, initial encounter; Y92.512 Supermarket, store or market as the place of occurrence of the external cause
CPT/HCPCS: 99283; 96372; 36415; 84703; 73600; 73552; L1830; J1885

== ENCOUNTER 2019-11-08 16:00 | Emergency (ER) | payer BC, OTHER ==
[2019-11-08 16:09] VITALS: BP 111/68
--- NOTE | 2019-11-08 16:22 | ER Document Report ---
ED Medical Screen (RME) - General Chief Complaint: Psych Problem Stated Complaint: PSYCH ISSUES Time Seen by Provider: 11/08/19 16:14 TRAVEL OUTSIDE OF THE [place] IN LAST 30 DAYS: No - HPI Notes: 11/08/19 16:21 28-year-old female to the emergency department with complaints of anxiety and depression has been aggressively worse over the last 2 months. She states that yesterday it got significantly worse. She states that she has suicidal ideations but denies any vitor plan. She has in the past been on medicines for depression and anxiety but has not taken anything about 5 years. She is never had a prior suicide attempt. She states that she does not drink alcohol. She does smoke. She denies any drug use. She states that she is having homicidal nation and she is not having any seizures. She does admit to racing thoughts and labile mood. She states that her racing thoughts are intrusive and she just cannot concentrate. 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 I performed a brief medical screening exam on the patient determined that the patient needs further evaluation and management by main side provider. I have placed initial orders to help expedite care. - Related Data Allergies/Adverse Reactions: No Known Allergies Allergy (Verified 12/04/18 13:37) Past Medical History GI Medical History: Reports: Hx Gastroesophageal Reflux Disease - Psychiatric Medical History: Reports: Hx Depression - teenager - Denies: Hx Bipolar Disorder, Hx Post Traumatic Stress Disorder, Hx Schizophrenia Past Surgical History: Reports: Hx Section - x2, Hx Orthopedic Surgery - spinal fusion Physical Exam - Vital signs Vitals: Temp Pulse Resp BP Pulse Ox 98.6 F 54 L 16 111/68 98 11/08/19 16:07 11/08/19 16:07 11/08/19 16:07 11/08/19 16:07 11/08/19 16:07 Course - Vital Signs Vital signs: Temp Pulse Resp BP Pulse Ox 98.6 F 54 L 16 111/68 98 11/08/19 16:07 11/08/19 16:07 11/08/19 16:07 11/08/19 16:07 11/08/19 16:07
[2019-11-08 17:04] LABS: ABSOLUTE EOSINOPHILS # (AUTO) 0.2 10^3/uL (0.0-0.6); ABSOLUTE LYMPHOCYTES (AUTO) 2.6 10^3/uL (0.5-4.7); ABSOLUTE MONOCYTES (AUTO) 0.6 10^3/uL (0.1-1.4); BASOPHILS % (AUTO) 0.3 % (0-2); EOSINOPHILS % (AUTO) 1.8 % (0-6); HEMATOCRIT 38.9 % (36.0-47.0); LYMPHOCYTES % (AUTO) 24.8 % (13-45); MEAN CORPUSCULAR HGB CONC 33.5 g/dL (32.0-36.0); MEAN CORPUSCULAR VOLUME 93 fl (80-97); MONOCYTES % (AUTO) 5.5 % (3-13); PLATELET COUNT 236 10^3/uL (150-450); RED BLOOD COUNT 4.21 10^6/uL (3.72-5.28); RED CELL DISTRIBUTION WIDTH 13.2 % (11.5-14.0); SEGMENTED NEUTROPHILS % (AUTO) 67.6 % (42-78); TOTAL CELLS COUNTED % (AUTO) 100 %; WHITE BLOOD COUNT 10.4 10^3/uL (4.0-10.5)
[2019-11-08 17:22] LABS: ALBUMIN 4.7 g/dL (3.5-5.0); ALKALINE PHOSPHATASE 41 U/L (38-126); ANION GAP 11 (5-19); ASPARTATE AMINO TRANSFERASE 15 U/L (14-36); BILIRUBIN,DIRECT 0.2 mg/dL (0.0-0.4); BILIRUBIN,TOTAL 0.3 mg/dL (0.2-1.3); BLOOD UREA NITROGEN 13 mg/dL (7-20); CALCIUM 9.6 mg/dL (8.4-10.2); CARBON DIOXIDE 27 mmol/L (22-30); CHLORIDE 105 mmol/L (98-107); POTASSIUM 4.2 mmol/L (3.6-5.0); TOTAL PROTEIN 7.3 g/dL (6.3-8.2)
[2019-11-08 17:31] LABS: ALCOHOL < 10 mg/dL (NONE DETECTED); GLUCOSE 65 mg/dL (75-110)
[2019-11-08 18:33] LABS: URINE AMPHETAMINES SCREEN NEGATIVE; URINE BARBITURATES SCREEN NEGATIVE; URINE COCAINE SCREEN NEGATIVE; URINE METHADONE SCREEN NEGATIVE; URINE PHENCYCLIDINE SCREEN NEGATIVE
[2019-11-08 18:34] LABS: URINE BENZODIAZEPINES SCREEN UNCONFIRMED POSITIVE; URINE MARIJUANA (THC) SCREEN UNCONFIRMED POSITIVE
--- NOTE | 2019-11-08 21:58 | PSYCHOLOGICAL NOTE ---
Psych Note - Psych Note Date seen by psych provider: 11/08/19 Psych Note: Patient presented to [facility] disclosing suicidal and homicidal ideation. She has made statement per family that she wanted to shoot herself. She also stated "her life would be better without Cleopatra." Cleopatra is the patient's 4 year old daughter that is critically ill which requires home health nursing. There is significant concern the patient cares for her critically ill child alone from 4pm until 11pm until the next home care nurse arrives; this is the child she has identified as her focus of homicidal ideation. Patient has been misusing opiates, buying them off the street for $20 a pill and snorting them per family. Toxicology screening indicates opiates, benzodiazepine and THC. She is not prescribed any medications. She disclosed labile mood with elation, aggression and fits of crying. She presented with tearful affect and difficulty concentrating on linear conversational speech. Patient is a danger to herself and others. She eloped before IVC process could began. Clinician contacted [facility] and was provided consent to fax FULL IVC paperwork to them and they will ensure the patient is served and returned to [facility] ED.
== END 2019-11-08 18:19 | disposition left against medical advice (07) ==
LOC: ER 16:00
DX: Z53.20 Procedure and treatment not carried out because of patient's decision for unspecified reasons (principal); F41.9 Anxiety disorder, unspecified; F32.9 Major depressive disorder, single episode, unspecified; R45.851 Suicidal ideations
CPT/HCPCS: 36415; 80053; 80307; 85025; 99281

== ENCOUNTER 2019-11-09 00:03 | Emergency (ER) | payer BC ==
--- NOTE | 2019-11-09 01:39 | ER Document Report ---
ED Psych Disorder / Suicide - General Mode of Arrival: Ambulatory Information source: Patient TRAVEL OUTSIDE OF THE [place] IN LAST 30 DAYS: No <CLYDE OTOOLE - Last Filed: 11/09/19 07:52> <FIDEL FORMAN - Last Filed: 11/09/19 14:28> - General Chief Complaint: Psych Problem Stated Complaint: IVC/PSYCH Time Seen by Provider: 11/09/19 01:09 Notes: 28-year-old female past medical history significant for anxiety and depression presents to the emergency room complaining of worsening panic attacks and increased depression over the past 3 weeks. States she has been feeling very overwhelmed secondary to financial stress at home as well as a handicapped child. Patient was seen earlier in the emergency room by triage and the pit provider, at that time was complaining of suicidal ideation without a plan. Patient left prior to being put in a room and prior to being seen by mental health team. After patient left police were sent to her home and at that point she was placed on papers and brought back to the emergency room. Patient continues to deny any suicidal and or homicidal ideation. States she has never tried to hurt himself in the past. Has never been hospitalized for her mental health issues in the past. States she has been on medications for depression in the past but it was over 4 years ago. (CLYDE OTOOLE) - Related Data Allergies/Adverse Reactions: No Known Allergies Allergy (Verified 11/09/19 00:32) Past Medical History - General Information source: Patient - Social History Smoking Status: Current Every Day Smoker Frequency of alcohol use: Occasional Drug Abuse: None Family History: Reviewed & Not Pertinent GI Medical History: Reports: Hx Gastroesophageal Reflux Disease - Psychiatric Medical History: Reports: Hx Anxiety, Hx Depression - teenager - Denies: Hx Bipolar Disorder, Hx Post Traumatic Stress Disorder, Hx Schizophrenia Past Surgical History: Reports: Hx Section - x2, Hx Orthopedic Surgery - spinal fusion <CLYDE OTOOLE - Last Filed: 11/09/19 07:52> Review of Systems - Review of Systems Constitutional: No symptoms reported EENT: No symptoms reported Cardiovascular: No symptoms reported Respiratory: No symptoms reported Gastrointestinal: No symptoms reported Genitourinary: No symptoms reported Female Genitourinary: No symptoms reported Musculoskeletal: No symptoms reported Skin: No symptoms reported Hematologic/Lymphatic: No symptoms reported Neurological/Psychological: Depression, Anxiety -: Yes All other systems reviewed and negative <CLYDE OTOOLE - Last Filed: 11/09/19 07:52> Physical Exam <CLYDE OTOOLE - Last Filed: 11/09/19 07:52> - Vital signs Vitals: Temp Pulse Resp BP Pulse Ox 98.9 F 54 L 16 127/68 H 100 11/09/19 00:30 11/09/19 00:30 11/09/19 00:30 11/09/19 00:30 11/09/19 00:30 - Notes Notes: VITAL SIGNS: Within normal limits. GENERAL: Mild acute distress, non-toxic appearance. HEAD: Normal with no signs of head trauma. EYES: PERRLA, EOMI, conjunctiva normal, no discharge. EARS: Hearing grossly intact. NOSE: Normal. THROAT: Oropharynx is normal. NECK: Normal range of motion, no tenderness, supple, no lymphadenopathy, No adenopathy, no JVD. CHEST: Clear breath sounds bilaterally. No wheezes, rales, or rhonchi. CARDIAC: Regular rate and rhythm. S1 and S2, without murmurs, gallops, or rubs. VASCULAR: No Edema. Peripheral pulses normal and equal in all extremities. ABDOMEN: Normal and soft with no tenderness, no masses or pulsatile masses. No organomegaly. Positive bowel sounds x4. No CVA tenderness noted bilaterally. GASTROINTESTINAL: Bowel sounds normal GENITOURINARY: Normal, No tenderness LYMPATHTIC: No lymphadenopathy noted. MUSCULOSKELETAL: Good range of motion of all major joints. Extremities without clubbing, cyanosis or edema. NEUROLOGICAL: Alert and oriented x 3. No focal sensory or strength deficits. Speech normal. Follows commands appropriately. PSYCHIATRIC: Flat affect, normal judgment, depressed mood. SKIN: Normal appearance with no rashes or lesions. (CLYDE OTOOLE) Course - Laboratory Result Diagrams: 11/09/19 02:52 11/09/19 02:52 - EKG Interpretation by Sd EKG shows normal: Sinus rhythm Rate: Normal Rhythm: NSR <CLYDE OTOOLE - Last Filed: 11/09/19 07:52> - Laboratory Result Diagrams: 11/09/19 02:52 11/09/19 02:52 <FIDEL FORMAN - Last Filed: 11/09/19 14:28> - Re-evaluation Re-evalutation: 11/09/19 02:24 Discussed with patient that she has been placed on IVC papers which means that she cannot leave her on record at this time. She is aware that she will be evaluated in the morning by the mental health team who at that time will make the decisions for disposition and/or further treatment. 11/09/19 07:25 Patient remains cooperative no acute distress. Patient is medically clear, pending psych consult. (CLYDE OTOOLE) 11/09/19 12:24 Patient resting denies any complaints at this time, behavioral health team are attempting to seek placement at this time. 11/09/19 13:57 Patient has been accepted to the [place] facility, patient is awaiting transport at this time. 11/09/19 14:28 Patient awaiting transport at this time, patient stable for transfer (FIDEL FORMAN) - Vital Signs Vital signs: Temp Pulse Resp BP Pulse Ox 99.4 F 75 18 120/69 98 11/09/19 08:23 11/09/19 08:23 11/09/19 08:23 11/09/19 08:23 11/09/19 08:23 - Laboratory Laboratory results interpreted by me: 11/09/19 11/09/19 11/09/19 02:52 02:52 06:20 WBC 11.0 H RBC 3.70 L Hgb 11.6 L Hct 33.8 L Chloride 108 H Glucose 128 H Total Bilirubin < 0.1 L AST 13 L Alkaline Phosphatase 35 L Total Protein 5.8 L Urine Blood SMALL H Urine Urobilinogen 2.0 H Urine Ascorbic Acid 40 H Salicylates < 1.0 L Acetaminophen < 10 L - EKG Interpretation by Me Additional EKG results interpreted by me: 11/09/19 01:52 EKG interpreted by ED physician Dr. Walton No acute STEMI Normal sinus rhythm Normal axis Rate [address] wave abnormalities (CLYDE OTOOLE) Discharge <CLYDE OTOOLE - Last Filed: 11/09/19 07:52> <FIDEL FORMAN - Last Filed: 11/09/19 14:28> - Discharge Clinical Impression: Depression Qualifiers: Depression Type: unspecified Qualified Code(s): F32.9 - Major depressive disorder, single episode, unspecified Disposition: PSYCH HOSP/UNIT
[2019-11-09 03:20] LABS: ABSOLUTE EOSINOPHILS # (AUTO) 0.2 10^3/uL (0.0-0.6); ABSOLUTE LYMPHOCYTES (AUTO) 3.1 10^3/uL (0.5-4.7); ABSOLUTE MONOCYTES (AUTO) 0.5 10^3/uL (0.1-1.4); ABSOLUTE NEUT (AUTO) 7.1 10^3/uL (1.7-8.2); BASOPHILS % (AUTO) 0.3 % (0-2); EOSINOPHILS % (AUTO) 1.9 % (0-6); HEMATOCRIT 33.8 % (36.0-47.0); HEMOGLOBIN 11.6 g/dL (12.0-15.5); LYMPHOCYTES % (AUTO) 27.9 % (13-45); MEAN CORPUSCULAR HEMOGLOBIN 31.3 pg (27.0-33.4); MEAN CORPUSCULAR HGB CONC 34.3 g/dL (32.0-36.0); MEAN CORPUSCULAR VOLUME 91 fl (80-97); MONOCYTES % (AUTO) 4.8 % (3-13); PLATELET COUNT 203 10^3/uL (150-450); RED CELL DISTRIBUTION WIDTH 12.9 % (11.5-14.0); SEGMENTED NEUTROPHILS % (AUTO) 65.1 % (42-78); TOTAL CELLS COUNTED % (AUTO) 100 %
[2019-11-09 03:34] LABS: ALBUMIN 3.7 g/dL (3.5-5.0); ALKALINE PHOSPHATASE 35 U/L (38-126); ANION GAP 7 (5-19); ASPARTATE AMINO TRANSFERASE 13 U/L (14-36); BLOOD UREA NITROGEN 16 mg/dL (7-20); CALCIUM 8.8 mg/dL (8.4-10.2); CARBON DIOXIDE 27 mmol/L (22-30); CHLORIDE 108 mmol/L (98-107); GLUCOSE 128 mg/dL (75-110); POTASSIUM 3.6 mmol/L (3.6-5.0); TOTAL PROTEIN 5.8 g/dL (6.3-8.2)
[2019-11-09 03:35] LABS: ACETAMINOPHEN < 10 ug/mL (10-30); ALCOHOL < 10 mg/dL (NONE DETECTED); BILIRUBIN,TOTAL < 0.1 mg/dL (0.2-1.3); SALICYLATE < 1.0 mg/dL (2.0-20.0)
[2019-11-09 07:00] LABS: APPEARANCE,URINE SLIGHTLY-CLOUDY; BILIRUBIN,URINE NEGATIVE (NEGATIVE); COLOR,URINE YELLOW; GLUCOSE, URINE NEGATIVE (NEGATIVE); KETONES,URINE NEGATIVE (NEGATIVE); LEUKOCYTE ESTERASE,URINE NEGATIVE (NEGATIVE); NITRITE,URINE NEGATIVE (NEGATIVE); PROTEIN,URINE NEGATIVE (NEGATIVE); URINE SPECIFIC GRAVITY 1.025
[2019-11-09 07:16] LABS: URINE AMPHETAMINES SCREEN NEGATIVE; URINE BARBITURATES SCREEN NEGATIVE; URINE COCAINE SCREEN NEGATIVE; URINE METHADONE SCREEN NEGATIVE; URINE PHENCYCLIDINE SCREEN NEGATIVE
[2019-11-09 07:20] LABS: URINE BENZODIAZEPINES SCREEN UNCONFIRMED POSITIVE; URINE MARIJUANA (THC) SCREEN UNCONFIRMED POSITIVE
[2019-11-09 15:27] VITALS: BP 115/68
--- NOTE | 2019-11-09 16:59 | PSYCHOLOGICAL NOTE ---
Psych Note - Psych Note Date seen by psych provider: 11/09/19 Time seen by psych provider: 11:41 - Evaluation with patient from [id number]. 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 Patient identified "the past couple weeks I have had panic attacks that come on randomly, I feel overwhelmed, it's hard to breathe, I can't move, and I can't talk to anyone." She stated she has a history of anxiety and post depression. She admitted she was previously on medication following the post depression but has not had anything in 4 years. Patient stated she reached out to [facility] and had an appointment with them yesterday (11/08/2019) at 1600 but was told she may be able to get help faster if she comes to the Emergency Department. She stated "I got here, waited 2.5 hours, and decided to leave." She admitted "I was being honest about my thoughts and feelings because I know my state of mind." Patient acknowledged having suicidal thoughts previously, never taking action, and not wanting to. Patient further reported she has follow up with [facility] in [place] 11/13/2019 with Ms. Tegan Boateng. Patient stated "I am not suicidal, I do have severe depression, I've got a lot going on in my life." She stated she has a good support group, being her family, and they brought her to get help. She further commented "I openly told my mother how I have been feeling and that I wanted help because I know when I can't handle things." Confronted patient about being positive for opiates, benzodiazepines and cannabis. She did not deny use and when informed of placement being sought she inquired if they treat substance abuse and mental health (she was informed yes). Patient did mention her 2 children and having a job as concerns for going inpatient. Patient inquired about PTSD, mentioned she thinks she has it due to dealing with her special needs child and inquired "is it bad to feel overwhelmed/like this." She was informed it is not bad to feel any kind of way and what's important is recognizing it and seeking help. Patient was alert and oriented to self, person, place, time and situation. Mood was depressed with congruent affect as evidenced by being tearful/crying. She denied current suicidal and homicidal ideation, admitted to having suicidal thoughts and never taking action. Patient did not appear to be responding to internal stimuli as evidenced by fair eye contact, answering questions appropriately when addressed, being engaged in evaluation and carrying on dialogue conversation. Thought processes were linear and organized. Conversational speech was within normal limits for rate, tone and prosody. Intellectual abilities are estimated to be average. Insight, judgment and impulse control were poor as evidenced by expressing she was overwhelmed, seeking help, using substances she is not prescribed, and increased anxiety and depression. At 1327 spoke to patient's who called in. Patient gave verbal consent to keep him aware of plan of care. He was made aware of IVC and seeking placement. Patient then called him when she was informed of acceptance to [facility]. Clinical Presentation: Special needs child Anxiety Depression Polysubstance Use Opioid Anxiolytic Cannabis Impression/Plan: Recommendation to maintain FULL IVC. Patient denied suicidal and homicidal ideation (story is very different from what family reported yesterday 11/08/2019). She admitted to being overwhelmed and having a lot going on. Patient presented depressed with tearful affect. She noted an increase in anxiety/panic attacks and an increase in depression. She has not been on medication in 4 years. She is using multiple substances she is not prescribed. Consulted with Dr. Murphy regarding the management and care of patient. ED Physician in agreement with recommendations. Patient accepted to [facility] for IVC inpatient hospitalization. Moving forward with that placement.
--- NOTE | 2019-11-12 02:54 | EKG REPORT ---
SEVERITY:- NORMAL ECG - SINUS BRADYCARDIA KELBY PROBABLY EARLY REPOLARIZATION : Confirmed by: Je Grayson MD 12-Nov-2019 02:53:55
== END 2019-11-09 15:20 ==
LOC: ER 00:03
DX: Z04.6 Encounter for general psychiatric examination, requested by authority (principal); F32.9 Major depressive disorder, single episode, unspecified; F41.9 Anxiety disorder, unspecified; Z63.6 Dependent relative needing care at home; Z59.9 Problem related to housing and economic circumstances, unspecified; F17.200 Nicotine dependence, unspecified, uncomplicated
CPT/HCPCS: 36415; 80053; 80307; 81001; 84703; 85025; 93005; 93010; 99285